=== PATIENT | female | born 1955 | race Caucasian/White ===

== ENCOUNTER 2018-09-20 08:27 | Outpatient (REF) | payer BC, SELFPAY ==
[2018-09-20 13:43] LABS: ALT 22 U/L (12-78); AST 15 U/L (15-37); Albumin 3.9 g/dL (3.4-5.0); Alkaline Phosphatase 96 U/L (46-116); Anion Gap 8.3 mmol/L (3-11); BUN 15 mg/dL (7-18); Bilirubin, Total 0.5 mg/dL (0.2-1.0); CO2 30.7 mmol/L (21.0-32.0); CREATININE 0.73 mg/dL (0.55-1.02); Chloride 103 mmol/L (98-107); Cholesterol 248 mg/dL (50-200); Glucose 93 mg/dL (70-100); HDL Cholesterol 60 mg/dL (40-60); LDL CHOLESTEROL 168 mg/dL (<100); Potassium 4.2 mmol/L (3.5-5.1); Sodium 142 mmol/L (136-145); TSH (W/Ref FT4) 0.31 uIU/mL (0.358-3.74); Total Protein 7.3 g/dL (6.4-8.2); Triglyceride 105 mg/dL (30-150)
[2018-09-20 14:10] LABS: FREE T4 1.47 ng/dL (0.76-1.46)
== END 2018-09-20 08:47 ==
LOC: NCHCN 08:27
PROVIDERS: PCP Family Medicine; Visit Provider Nurse Practitioner
DX: E03.9 Hypothyroidism, unspecified (principal); E78.5 Hyperlipidemia, unspecified
CPT/HCPCS: 80053; 80061; 83721; 84439; 84443

== ENCOUNTER 2018-10-06 00:26 | Outpatient (CLI) | payer BC, SELFPAY ==
--- NOTE | 2018-10-06 11:30 | DI.MAMMO_ITS ---
SYMPTOMS/DIAGNOSIS: SCREENING, Z12.31 MAMMOGRAMS: Mammograms were interpreted according to the usual protocol including computer analysis with CAD system, tomosynthesis and C view imaging. The breast tissue is primarily of fatty radiodensity. There is no dominant mass. There are no suspicious calcifications and there has been no significant interval change when compared with previous images. SUMMARY: No evidence of malignancy, category 1. Yearly screening mammography is recommended. Breast density category A. MQSA ASSESSMENT OF FINDINGS: Negative. Category 1. Patient will receive a letter notifying them of these results. BI-RAD category A. The breasts are almost entirely fatty.
== END 2018-10-06 00:46 ==
PROVIDERS: PCP Family Medicine; Visit Provider Nurse Practitioner Family
DX: Z12.31 Encounter for screening mammogram for malignant neoplasm of breast (principal)
CPT/HCPCS: 77063; 77067

== ENCOUNTER 2019-01-02 00:33 | Outpatient (CLI) | payer BC, SELFPAY ==
--- NOTE | 2019-01-02 09:42 | DI.RAD_ITS ---
SYMPTOM/DIAGNOSIS: LT KNEE JOINT PAIN, M25.562 LEFT KNEE: There are no prior comparison exams. There is severe degenerative changes of the lateral femoral tibial joint, with a bone on bone appearance. There is some widening of the medial femoral tibial joint. There is prominent spurring at the patellofemoral joint. Venous varicosities are seen. IMPRESSION: Severe degenerative changes of the lateral femoral tibial joint.
== END 2019-01-02 00:53 ==
PROVIDERS: PCP Nurse Practitioner; Visit Provider Nurse Practitioner
DX: M25.562 Pain in left knee (principal); M17.12 Unilateral primary osteoarthritis, left knee
CPT/HCPCS: 73562

== ENCOUNTER 2019-01-17 12:43 | Outpatient (CLI) | payer BC, SELFPAY ==
--- NOTE | 2019-01-17 12:57 | HPE_ITS ---
Date of service: 01/17/19 Assessment and Plan (1) Primary osteoarthritis of left knee: Current visit: No Status: Chronic Left total knee replacement Details of the were discussed with patient as well as risks and pertinent anatomy. All questions were answered. History of Present Illness Chief Complaint: Left knee pain Narrative: Renato is a 63-year-old female who comes in today for a preop visit for a left total knee replacement. She states that she has been dealing with this left knee pain for many years, but over the last 6 months or so it has gotten significantly worse. She usually spends her winter down in [place], and this winter she was unable to participate in many of the activities that she likes to do including walking, because of her left knee pain. She previously was able to push through a little bit of the pain while using Tylenol, and was also able to participate fully in what she wanted to do. Over the last 6 months she has been severely limited by her left knee and would like to move forward with a total knee replacement. She has not tried injections in the past, but she has known family members to have gone through this, and injections did not work for them. She is not interested in injection therapy at this time. She has been doing physical therapy in order to work on some conditioning of the knee as she was instructed by her family that this might be a good idea. She is here to discuss the possibility of having a left total knee replacement. X-rays taken of her left knee show that she has severe arthritis especially in the lateral compartment with a severe valgus deformity. She does have some joint space narrowing in all of her compartments, but she has [id number] on the lateral compartment. There is bone spurring throughout the knee. Since she is not interested in injection therapy, Dr. Puri suggests that her disease is bad enough to move forward with a left total knee replacement, and she agrees with this plan and is anxious to proceed. Pertinent Surgical Information Renato has a history of GERD with stomach ulcers, but this has been resolved with pantoprazole. Patient denies history of hypertension, CVA, OK, angina, asthma, COPD, renal or liver disorders, hepatitis, bleeding disorders, diabetes, immune or thyroid disorders. No complications from anesthesia. Review of Systems Constitutional Denies fever(s) ENT Denies dizziness and Denies sore throat Cardiovascular Denies chest pain, Denies palpitations and Denies dyspnea Respiratory Denies cough and Denies dyspnea Gastrointestinal Denies abdominal pain, Denies melena, Denies hematochezia, Denies diarrhea, Denies nausea and Denies vomiting Genitourinary Denies hematuria and Denies dysuria Neurologic Denies dizziness Endocrine Denies palpitations [facility] Medical History Hypothyroidism (Acute 08/28/13) Psoriasis (Acute 08/28/13) Surgical History History of decompression of ulnar nerve (Acute) History of repair of right rotator cuff (Acute) Family History Mother Heart disease Father Dementia Peripheral neuropathy Sister Diabetes Social History Smoking/Tobacco Use Status: Never Drug use: Never Meds Home Medications Medication Instructions Recorded Confirmed Type calcium carbonate-vit D3-min 1 ea PO DAILY tab.chew 08/28/13 01/17/19 History Pantaprazole PO DAILY 09/30/18 01/17/19 History triamcinolone acetonide 0.1 % 1 applic TOPICAL BID #30 gm 09/30/18 01/17/19 Rx topical cream fish oil-dha-epa 1,200 mg-144 1 cap PO DAILY cap 01/11/19 01/17/19 History mg-216 mg capsule levothyroxine 112 mcg tablet 125 mcg PO DAILY tab-cap 01/11/19 01/17/19 History Allergies Allergy/AdvReac Type Severity Reaction Status Date / Time sulfamethoxazole AdvReac Intermediate VOMITING Unverified 01/17/19 11:57 [From Bactrim] trimethoprim [From Bactrim] AdvReac Intermediate VOMITING Unverified 01/17/19 11:57 Exam [facility] Head: normocephalic and atraumatic General nose exam: no nasal discharge Throat: uvula midline and no uvular edema Other: soft palate rises symmetrically, no erythema Eyes Conjunctivae: conjunctivae normal Sclera: sclerae normal Pupils: PERRL Resp Effort & Inspection: normal respiratory effort Auscultation: clear to auscultation bilaterally and no wheezes Cardio Rate: regular rate Rhythm: regular rhythm Heart Sounds: S1 normal, S2 normal and no murmurs GI Palpation: soft, no hepatosplenomegaly and nontender Auscultation: normal bowel sounds
[2019-01-17 13:53] LABS: Abs Immature Grans 0.01 k/cumm (0.0-0.09); Absolute Basophil Count 0.03 k/cumm (0.0-0.2); Absolute Eosinophil Count 0.25 k/cumm (0.0-0.7); Absolute Lymphocyte Count 1.52 k/cumm (1.2-3.4); Absolute Monocyte Count 0.65 k/cumm (0.11-0.7); Absolute Neutrophil Count 3.93 k/cumm (1.2-6.7); Basophils % 0.5; Eosinophils % 3.9; HCT 41.1 % (36.0-46.0); HGB 13.9 g/dL (12.0-15.5); Immature Grans % 0.2; Lymphocytes % 23.8; Mean Corp. HGB Concentration 33.8 g/dL (32.0-36.0); Mean Corpuscular Hemoglobin 29.6 pg (27.0-33.0); Mean Corpuscular Volume 87.4 fL (80-95); Mean Platelet Volume 9.1 fL (8.0-11.0); Monocytes % 10.2; Neutrophils % 61.4; Platelet Count 289 x1000/uL (130-400); RBC Distribution Width 12.9 % (11.7-14.6); White Blood Cell Count 6.39 k/cumm (4.4-10.8)
== END 2019-01-17 13:03 ==
PROVIDERS: PCP Nurse Practitioner; Visit Provider Orthopaedic Surgery
DX: M25.562 Pain in left knee (principal); M17.12 Unilateral primary osteoarthritis, left knee; Z01.812 Encounter for preprocedural laboratory examination; Z01.818 Encounter for other preprocedural examination
CPT/HCPCS: 36415; NC; 85025

== ENCOUNTER 2019-01-23 06:01 | Inpatient (IN) | payer BC, SELFPAY ==
[2019-01-23] VITALS (12 sets, daily range): BP systolic 106–124; BP diastolic 39–71; PULSE 61–80; RESP 12–18; TEMP 36.4–37; O2SAT 92–97
[2019-01-23] MEDS: Lactated Ringers 1,000 ML 80 ML IV ×2 (06:44→13:41)
[2019-01-23] MEDS: Bupivacaine 0.25% Pres-Free 30 ML VIAL (07:18)
[2019-01-23] MEDS: Bupivacaine LIPOSOME/PF 133 MG/10 ML VIAL IJ (07:18)
[2019-01-23] MEDS: ceFAZolin 2 GM/50 ML BAG IVPB (07:39)
[2019-01-23] MEDS: Hydrogen Peroxide 3% 480 ML BTL (09:07)
--- NOTE | 2019-01-23 11:17 | DI.RAD_ITS ---
SYMPTOMS/DIAGNOSIS: CHECK TOTAL KNEE COMPONENTS IN RR LEFT KNEE: Two views. Comparison 01/02/19. The patient is now status post left total knee replacement. The orthopedic hardware appears in good position. The bones are intact. Skin mirella are present. Post surgical changes in the soft tissues are noted. IMPRESSION: Status post left TKR.
[2019-01-23] MEDS: oxyCODONE-CR 10 MG TABCR PO (11:58)
--- NOTE | 2019-01-23 13:18 | NUR.NOTE ---
1145 - Admitted from PACU, S/P left TKA. Transferred to bed in room 225 via hover mattress and 3 assist. Alert and oriented x3. VSS. See initial shift assessment for details.
[2019-01-23] MEDS: Docusate Sodium 100 MG CAP PO ×2 (13:53→20:57)
[2019-01-23] MEDS: Gabapentin 100 MG CAP PO ×2 (13:53→20:57)
--- NOTE | 2019-01-23 14:18 | PT.INIE ---
Date of service: 01/23/19 Time of Service: 13:50 PT Notes Inpatient Physical Therapy Evaluation Date: 01/23/19 Referring Doctor: Dr. Puri PT Orders: PT CONSULT: Mobilize postop left total knee. WBAT to left leg. Get out of bed ambulating in room this afternoon Precautions: Standard, fall, WBAT LLE Patient Profile/Admitting Diagnosis: Patient admitted postop day 0 after left TKA. 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 She lives in [place] with her . 2 steps to enter home without rail. Once in the home, she is able to remain on the first floor. Equipment Owned/DME: FW W Subjective: Patient reports that she is feeling well since her surgery earlier this morning. She is nervous about getting up for the first time, but feels that she is ready to do so. States that she thinks it will feel good to get her leg moving. She points out that she had been participating in outpatient PT up until a couple of weeks prior to surgery, and is hopeful that the strengthening will be helpful for her as she recovers from surgery. Objective: General Observation: Resting in bed with left lower extremity elevated on pillows, and supported with Lowe wrap and knee immobilizer. Evangelista catheter in place. Mental Status: A&Ox3 Pain: well managed ROM: Right Upper Extremity: WFL Left Upper Extremity: WFL Right Lower Extremity: WFL Left Lower Extremity: Not assessed due to Lowe wrap Strength: Right Upper Extremity: WFL Left Upper Extremity: WFL Right Lower Extremity: WFL Left Lower Extremity: Patient requires 25% assist for straight leg raise initially, although is able to perform a single independent SLR with cues. She is able to pump her ankle and wiggle her toes. Sensation: Intact distally Bed Mobility/Transfers: Supine?sit: CG with HOB at 30 degrees Sit?stand: CG Stand?sit: CG, max cues Bed?chair: FW W, CG, max cues Gait: Patient ambulance 5 feet with use of FW W and CG x1. She requires max cues for FW W management and technique. Balance: Static Sitting: Good Dynamic Sitting: Fair Static Standing: Fair Dynamic Standing: Fair Special Tests: Mobility Limitations [facility] Basic Mobility Inpatient Short Form: Raw Score: 17 CMS Score: 51% Informed Consent/Education: Patient instructed in purpose of PT consult and plan of care. She was instructed in an early therapeutic exercise program, consisting of quad setting activities and antiembolic exercises, as noted on flowsheet. Assessment: Patient is a 63 year old female referred to physical therapy services with the diagnosis of left knee OA, status post left TKA, postop day 0. Patient presents with clinical signs and symptoms consistent with postoperative status, as demonstrated by the following impairment level findings: 1. Decreased left lower extremity strength 2. Decreased left lower extremity range of motion 3. Gait impairments 4. Decreased balance 5. Postoperative edema Impairments are contributing to the following functional limitations: 1. Decreased independence with household distance ambulation 2. Decreased independence of bed mobility 3. Decreased independence with ADLs 4. Unable to manage stairs Patient is assessed as a Low 00073 complexity based on the following: History: 63-year-old female on postop day 0 after left total knee replacement. Patient does not have any significant complicating factors Examination: Functional limitations as noted above Presentation: Stable Decision Making: Low complexity Goals: Goals X1 week 1. Supine-Sit : supervision 2. Sit-Supine : supervision 3. Sit-Stand : supervision 4. Stand-Sit : supervision 5. Bed-Chair : supervision with FW W 6. Chair-Bed : supervision with FW W 7. Gait: Supervision with FW W x100 feet 8. Stairs: Patient able to a send and descend therapeutic stairs x2 Plan of Care/Treatment Plan: 1-2x/day, 7 days/week x 1 week. Plan of care has been reviewed with the RELIABILITY TECHNOLOGIST providing the service under Physical Therapy direction. Initiate Physical Therapy intervention for strengthening, bed mobility, transfers, gait, stairs, balance training, use of assistive device. DISCHARGE RECOMMENDATIONS: Home with home health versus outpatient PT. No anticipated equipment needs, as patient already owns an FW W TREATMENT CODE/TIME: 150?215 ([id number]) Deepa Ley, PT, DPT [facility]
[2019-01-23] MEDS: POTASSIUM CHLORIDE/0.9% NACL 1,000 ML 125 MEQ IV (16:08)
[2019-01-23] MEDS: Ketorolac 30 MG/ML VIAL IVP ×2 (17:35→23:31)
[2019-01-23] MEDS: HYDROcodone 5/Acetaminophen 325 TAB PO (20:58)
[2019-01-24] VITALS (7 sets, daily range): BP systolic 99–127; BP diastolic 61–71; PULSE 64–74; RESP 18–19; TEMP 36.4–37.7; O2SAT 93–99
[2019-01-24] MEDS: Ketorolac 30 MG/ML VIAL IVP ×4 (06:07→23:43)
[2019-01-24] MEDS: Levothyroxine 125 MCG TAB PO (06:07)
[2019-01-24 07:44] LABS: HCT 35.1 % (36.0-46.0); HGB 11.4 g/dL (12.0-15.5); Mean Corp. HGB Concentration 32.5 g/dL (32.0-36.0); Mean Corpuscular Hemoglobin 28.9 pg (27.0-33.0); Mean Corpuscular Volume 88.9 fL (80-95); Mean Platelet Volume 9.6 fL (8.0-11.0); Platelet Count 193 x1000/uL (130-400); RBC 3.95 m/cumm (4.00-5.20); RBC Distribution Width 12.9 % (11.7-14.6); White Blood Cell Count 5.87 k/cumm (4.4-10.8)
[2019-01-24] MEDS: HYDROcodone 5/Acetaminophen 325 TAB PO ×3 (07:48→20:24)
[2019-01-24] MEDS: Gabapentin 100 MG CAP PO ×3 (07:48→20:25)
[2019-01-24] MEDS: Acetaminophen 325 MG TAB 650 MG PO (07:48)
[2019-01-24] MEDS: Pantoprazole 40 MG TABCR PO (07:48)
[2019-01-24] MEDS: Enoxaparin 30 MG/0.3 ML SYR SC (09:16)
[2019-01-24] MEDS: Multivitamin w/Minerals TAB 1 TAB PO (09:16)
[2019-01-24] MEDS: Docusate Sodium 100 MG CAP PO ×3 (09:16→20:25)
--- NOTE | 2019-01-24 09:20 | ROE_ITS ---
DATE OF PROCEDURE: January 23, 2019 PREOPERATIVE DIAGNOSIS: Osteoarthritis left knee with valgus deformity. POSTOPERATIVE DIAGNOSIS: Same. PROCEDURE: Left total knee arthroplasty. COMPONENTS USED: 1. Size 2.5 posterior cruciate-sacrificing femoral component. 2. Size 2.5 tibial component. 3. Size 2.5, 10 mm thick polyethylene insert, posterior cruciate-substituting. 4. 32 mm tri-pronged patella. All components were cemented. ANESTHESIA: General with a femoral nerve block, Bonnie Gates CRNA SURGEON: Graham Puri M.D. FIRE PREVENTION INSPECTOR: Chloe Sheriff INDICATIONS: This is a 63-year-old white female with disabling pain and limitation of activities of daily living due to osteoarthritis of her left knee. This has been slowly deteriorating over the la st few years. She has reached the point where she could no longer tolerate the pain on a daily basis and she is requesting total knee replacement for relief of pain. The risks and complications of the procedure were explained to the patient in detail preoperatively. PROCEDURE: The patient was taken to the Operating Room on 01/23/19. She was given a femoral nerve bl ock and then placed supine on the operating table. A general anesthetic was administered. Once good anesthesia was obtained, a proximal tourniquet was applied to the left thigh. The left lower extrem ity was prepped from toes to tourniquet and draped free in the usual sterile fashion. Under proximal tourniquet control an anterior midline incision was made, beginning at the tibial tube rcle and extending about four inches proximal to the patella. The incision was carried through the s kin and subcu to the fascia. A medial parapatellar capsular incision was then made and was carried p roximally and longitudinally in the mid-portion of the quadriceps tendon. Because of her valgus defo rmity, a limited medial release was performed, and that was done subperiosteally. A more extensive l ateral release was performed, including the lateral capsule and the iliotibial band. The lateral cap jimmie was released at the joint line. Medial and lateral meniscectomies were performed. Anterior and posterior cruciate ligaments were sacrificed. The distal femur was then resected using intramedulla ry alignment guides and jigs. She was found to require a size 2.5 femoral component. The proximal t ibia was then resected using extramedullary alignment guides and jigs. The patient was again found t o require a size 2.5 tibial component. Trial reduction was then performed and it was found that she had maximal stability from 0 to 90 degrees of flexion while allowing the knee to come to full extensi on with a 10 mm insert. The trial components were then removed and then the keel for the tibial comp onent was reamed and punched out in proper rotation alignment. Finally the patella was resected usin g the patellar resection guide. The patella thickness was 22 mm prior to resection. I left 15 to 16 mm of thickness of patellar bone following resection. Using the drill guide for the tri-pronged pat reji, holes were drilled for a size 32 tri-pronged patella. The proximal tibia was prepared for cementing with pulse irrigation lavage of saline solution and dry ing with peroxide-soaked strip sponges. One batch of gentamicin-impregnated methylmethacrylate was v acuum-mixed and was hand packed onto the undersurface of the tibial component and onto the prepared t ibial plateau. The tibial component was inserted and packed into place with impactor and mallet and further pressurized using the trial components and extending the knee. Excess cement was trimmed fro m the margins of the tibial component with the plastic cement removal tool while the cement was still soft. When the first batch of methylmethacrylate had cured, the trial components were removed. The distal femur and patella were prepared for cementing with pulse irrigation lavage of saline solution and drying with peroxide-soaked strip sponges. Another batch of gentamicin-impregnated methylmethac rylate was vacuum-mixed and was hand packed onto the prepared femur and patella. The holes for the i ntramedullary alignment guides on the femur were plugged with bone doing the distal femoral resection . The femoral component was then packed into place with the impactor and mallet and further pressuri zed using the trial tibial insert and extending the knee. The patellar component was inserted and wa s pressurized using the patellar clamp. Excess cement was trimmed from the margins of the femoral co mponent and the patellar component while the cement was still soft using the plastic cement removal t ool. When the second batch of methylmethacrylate was cured, the trial insert was removed. The poste rior recesses were checked and any residual bone or cement debris was removed at this time. The knee was irrigated with pulse irrigation lavage a final time. The actual insert, 10 mm, posterior crucia te-substituting was placed into the tibial tray and then reduced onto the femoral condyles. Patellar tracking was checked using the [id number]-thumb. The patella tracked anatomically. The posterior c apsule was infiltrated with 0.5% Marcaine with an epinephrine solution and then the wound margins, st arting at the joint capsule and extending to the subcu, were infiltrated with 0.5% Marcaine with an e pinephrine solution. The medial parapatellar capsular incision and the incision in the quad tendon w ere repaired with interrupted [id number] sutures of #1 Vicryl suture material. The subcu was ap proximated with interrupted #2-0 Vicryl sutures and the skin edges were approximated with skin staple s. Sterile dressings were applied, followed by a long-leg Lowe compressive dressing. The tournique t was released at this point. A knee immobilizer splint was placed over the Lowe dressing to mainta in the knee in extension. The patient tolerated the procedure well. Her anesthesia was reversed without complication. Blood l oss was minimal due to tourniquet use. The patient was discharged to the recovery room in good condi tion.
[2019-01-24] MEDS: POTASSIUM CHLORIDE/0.9% NACL 1,000 ML 60 MEQ IV (10:25)
[2019-01-24] MEDS: oxyCODONE-CR 10 MG TABCR PO ×2 (11:23→23:44)
--- NOTE | 2019-01-24 13:24 | W.PM.PROGNOT ---
Date of Service Date of service: 01/24/19 Time of Service: 13:24 Assessment and Plan (1) Status post total left knee replacement: Current visit: Yes Status: Acute Assessment: Stable postop day #1 left total knee replacement. She is moving so well so quickly that I think we can accelerate her postop mobilization. Plan: We will have PT remove her Lowe dressing, put on long-leg Dmitri stocking on the left, and start active motion of her left knee this afternoon. Will DC home when fully independent and taking only p.o. pain meds. Subjective Interval history since last seen: Renato is feeling well. Her pain is well controlled with her present regimen of multimodal pain relief. She is afebrile. Today she walk from her room to the ICU and back. Her Evangelista is out but she has not voided yet. Exam Narrative Exam Narrative: She is sitting comfortably in a chair. She has good sensation and circulation to the toes of her left foot. She has good active motion of the toes and ankle. She is afebrile and her vital signs are stable. Hemoglobin this morning was 11.4 g. She is eating and drinking well. Objective Objective Clinical Data: Abnormal lab results 01/24/19 Range/Units 06:40 RBC 3.95 L (4.00-5.20) m/cumm Hgb 11.4 L (12.0-15.5) g/dL Hct 35.1 L (36.0-46.0) % Vital Signs Temperature 36.7 C 01/24/19 11:19 Temperature Source Tympanic 01/24/19 11:19 Pulse 64 01/24/19 11:19 Pulse Rhythm Regular 01/24/19 09:26 Respiratory Rate 18 01/24/19 11:19 Respiratory Effort 01/24/19 09:26 Respiratory Depth Normal 01/24/19 09:26 Respiratory Pattern Normal 01/24/19 09:26 Blood Pressure 102/61 01/24/19 11:19 Pulse Oximetry 94 L 01/24/19 11:19 Respiratory End-tidal CO2 38 01/23/19 11:45 Oxygen Delivery Method Room Air 01/24/19 11:19 Oxygen Flow Rate 0 01/24/19 11:19 Pain Level 4 01/24/19 11:24 Comment 01/24/19 03:15 Intake & Output 0701/24/19 01/24/19 23:59 11:59 23:59 Intake Total 1273 / 2358 1573 / 1573 Output Total 1050 / 1100 1000 / 1000 Balance 223 / 1258 573 / 573 Intake: IV 783 / 1793 913 / 913 Oral 490 / 565 660 / 660 Output: Urine 1050 / 1100 1000 / 1000 Other: Urine Color Pale Light Hanny Urine Appearance Clear Clear Comment emptied by RN Laboratory Results WBC 5.87 k/cumm (4.4-10.8) 01/24/19 06:40 RBC 3.95 m/cumm (4.00-5.20) L 01/24/19 06:40 Hgb 11.4 g/dL (12.0-15.5) L 01/24/19 06:40 Hct 35.1 % (36.0-46.0) L 01/24/19 06:40 MCV 88.9 fL (80-95) 01/24/19 06:40 MCH 28.9 pg (27.0-33.0) 01/24/19 06:40 MCHC 32.5 g/dL (32.0-36.0) 01/24/19 06:40 RDW 12.9 % (11.7-14.6) 01/24/19 06:40 Plt Count 193 x1000/uL (130-400) 01/24/19 06:40 MPV 9.6 fL (8.0-11.0) 01/24/19 06:40
--- NOTE | 2019-01-24 16:13 | CHAPLAIN ---
Renato was sitting up in a chair when I visited. She said she expects to feel much better after getting through recovery. She has has several family members and friends visit and is feeling well supported. She looks forward to having much less pain in her knee.
--- NOTE | 2019-01-24 16:17 | INITIAL_ITS ---
Care Management Initial Assess REASON FOR HOSPITALIZATION:: Post Op Left Total Knee PAST MEDICAL HISTORY/PAST SURGICAL HISTORY:: GERD, Hypothyroidism, Osteoarthritis, Psoriasis, decompression of ulnar nerve, repair of right rotator cuff PREVIOUS FUNCTIONAL STATUS/SOCIAL/FAMILY SUPPORTS:: Renato resides with her , [place] in [place], [place]. She is independent at baseline and independent with ADLs in the community. 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 CURRENT FUNCTIONAL STATUS:: Renato was lying in bed, speaking with PT. Renato reported having needed DME at home. ADVANCE DIRECTIVES:: None on file at [facility]. Has patient been provided with information about the portal?: No Did the patient sign up for the portal?: No CODE STATUS:: Full Code INSURANCE COVERAGE / FINANCIAL ISSUES:: [place] of [place] CURRENT HOME/COMMUNITY SERVICES/EQUIPMENT:: [facility] PRIMARY CARE PHYSICIAN:: Yoselyn Landrum POTENTIAL DISCHARGE NEEDS:: PT evaluation PATIENT/FAMILY EDUCATION NEEDS:: Review of discharge instructions, discuss Ask Me Three. ANTICIPATED BARRIERS TO DISCHARGE:: None identified. TRANSPORTATION:: Via private vehicle with her . PLAN:: Renato will return home when ready per MD. No additional supports anticipated at this time. She will follow up with Dr. Puri, her PCP and plan of care as prescribed. She will transport via private vehicle with her .
--- NOTE | 2019-01-24 16:56 | PT.INTREAT ---
Date of service: 01/24/19 Time of Service: 16:56 PT Notes Inpatient Physical Therapy Treatment [facility] Date: 01/24/2019 PRECAUTIONS: Fall, WBAT L SUBJECTIVE: Renato reports that she is having increased pain today versus yesterday. She is agreeable to participating in PT OBJECTIVE: PAIN: Patient complained of left knee pain with ther ex BED MOBILITY/TRANSFERS Supine?sit: I Sit-supine: I with HOB flat Sit-stand: SBA in a.m.; S in p.m. Stand-sit: SBA in a.m.; S in p.m. GAIT Assistive Device: FWW Weight bearing: WBAT L Assist: SBA Distance: 40' x2 in a.m.; 150' in p.m. Deviation: Cueing to breathe and step through instruction in a.m. Static standing at sink x3 minutes with unilateral UE support and SBA THEREX: Patient completed a lower extremity strengthening and stabilization program, in a supine position, as per flow sheet. Patient requires assist with SLR exercise with and without Lowe wrap in place. Left knee AROM is -10-92 degrees. Patient ends with cryocuff to left knee. REMOVAL OF LOWE: Incision site with 28 mirella found to be clean, dry, and intact. No redness or blistering noted. Replaced with Xeroform gauze, 4?4 gauze, tape, and thigh?high RAVINDER stocking. TOILETING: Patient toileted with supervision for transfers ASSESSMENT: Patient tolerated session with minimal complaint of left knee discomfort. Patient was able to tolerate a progression in gait distance with FWW support and SBA, utilizing step through gait pattern following instruction. Patient would benefit from continued gait training as well as strengthening for improved mobility. PLAN: Continue with PT's POC TREATMENT CODE/TIME: Session 1: 30 minutes; [id number], [id number] Session 2: 55 minutes; 73017 x3, [id number]
[2019-01-25 04:45] VITALS: BP 110/68; PULSE 75; RESP 14; TEMP 37.1; O2SAT 98
[2019-01-25] MEDS: Levothyroxine 125 MCG TAB PO (05:14)
[2019-01-25] MEDS: Ketorolac 30 MG/ML VIAL IVP ×2 (05:14→11:31)
[2019-01-25 07:25] VITALS: BP 100/64; BP 93/57; PULSE 61; RESP 18; TEMP 36.9; O2SAT 93
[2019-01-25] MEDS: Docusate Sodium 100 MG CAP PO (07:43)
[2019-01-25] MEDS: Pantoprazole 40 MG TABCR PO (07:43)
[2019-01-25] MEDS: Gabapentin 100 MG CAP PO (07:43)
[2019-01-25 07:44] LABS: HCT 31.4 % (36.0-46.0); HGB 10.3 g/dL (12.0-15.5); Mean Corp. HGB Concentration 32.8 g/dL (32.0-36.0); Mean Corpuscular Hemoglobin 29.1 pg (27.0-33.0); Mean Corpuscular Volume 88.7 fL (80-95); Mean Platelet Volume 9.6 fL (8.0-11.0); Platelet Count 185 x1000/uL (130-400); RBC 3.54 m/cumm (4.00-5.20); RBC Distribution Width 12.8 % (11.7-14.6); White Blood Cell Count 9.41 k/cumm (4.4-10.8)
[2019-01-25] MEDS: Triamcinolone 0.1% CR 15 GM TUBE TP (07:44)
[2019-01-25] MEDS: Multivitamin w/Minerals TAB 1 TAB PO (07:45)
[2019-01-25] MEDS: HYDROcodone 5/Acetaminophen 325 TAB PO (08:00)
--- NOTE | 2019-01-25 09:25 | PT.INTREAT ---
Date of service: 01/25/19 Time of Service: 09:25 PT Notes Inpatient Physical Therapy Treatment Note [facility] Date: 01/25/2019 PRECAUTIONS: Fall, WBAT L SUBJECTIVE: Renato states that she is feeling pretty good today. She reports that she has been ambulating and transferring within her room, independently, and feels safe. OBJECTIVE: PAIN: No c/o pain BED MOBILITY/TRANSFERS Supine?sit: I Sit-stand: I Stand-sit: I GAIT Assistive Device: FWW Weight bearing: WBAT L Assist: S Distance: 175' Static standing at sink x2 minutes with unilateral UE support, independently THEREX: Patient completed a lower extremity strengthening and stabilization program, in a supine position, as per flow sheet. Patient requires assist with SLR exercise. Patient ends with cryocuff to left knee. TOILETING: Patient toileted independently ASSESSMENT: Patient tolerated session without complaint of left knee discomfort. Patient was able to tolerate a progression in gait distance with FWW support and supervision, utilizing step through gait pattern. Patient is now independent within room with ambulation and transfers. PLAN: As per primary PT TREATMENT CODE/TIME: 30 minutes; 04009, [id number]
[2019-01-25] MEDS: Enoxaparin 30 MG/0.3 ML SYR SC (10:15)
[2019-01-25 11:16] VITALS: BP 106/68; PULSE 68; RESP 18; TEMP 36.3; O2SAT 100
[2019-01-25] MEDS: oxyCODONE-CR 10 MG TABCR PO (11:29)
[2019-01-25] MEDS: Normal Saline Flush 10 ML SYR IV (11:30)
--- NOTE | 2019-01-25 12:17 | W.PM.DS.N ---
Date of service: 01/25/19 Time of Service: 12:18 DS: Diagnosis Discharge Diagnosis (1) Status post total left knee replacement: Status: Acute Discharge Plan Disposition Patient Disposition: HOME Condition: Good Discharge Details Reason For Visit: POST OP LEFT TOTAL KNEE Admit Date/Time: 01/23/19 06:01 Admit Provider: Graham Puri Attending Provider: Graham Puri Primary Care Provider: Yoselyn aLndrum Hospital Course Hospital Course: The patient was taken to the OR on the day of admission,01/23/19, where she underwent a L total knee arthroplasty. Post-op she was mobilized per protocol. She achieved a ROM of 10-92 degrees within 48 hours. she remained afebrile throughout her stay. At 48 hours, her incision was clean and dry. She wanted to go home. She had achieved all acute care goals and I thought she could be safely discharged home. Home Meds and New Rx's Prescriptions: New ibuprofen 800 mg tablet 800 mg PO TID Qty: 30 RF: 1 hydrocodone-acetaminophen 5-325 mg tablet 1 tab PO Q4H PRN (Reason: pain) Qty: 20 RF: 0 Continued triamcinolone acetonide 0.1 % cream 1 applic Topical BID Qty: 30 RF: 1 fish oil-dha-epa 1,200-144-216 mg capsule 1 cap PO DAILY RF: 0 calcium carbonate-vit D3-min 1 EACH tablet,chewable 1 ea PO HS RF: 0 levothyroxine 125 mcg Capsule 125 mcg PO DAILY RF: 0 pantoprazole 20 mg Tablet,Delayed Release (Dr/Ec) 20 mg PO DAILY RF: 0 acetaminophen 650 mg Tablet Extended Release 650 mg PO RF: 0 Discharge Instructions Additional Instructions: Elevate L leg when sitting. Use walker or crutches as long as you limp. Tomorrow, may remove dressings, shower, and get mirella wet. After showering, pat mirella dry and cover them with light gauze dressing. Use cryocuff on L knee 4times/day for 1 hour each time. When you can lift your straight L leg off the bed, you can stop using the knee immobilizer splint. Outpatient physical therapy at [facility] on Wednesday. Follpow up with in 2 weeks. Take ibuprofen as prescribed for 10 days. Take hydrocodone for breakthru pain, if needed. Take one baby aspirin (81 mg) twice/day for 30 days to prevent blood clots in legs. Wear long elastic stocking on L during daytime only for next 2 weeks. Walk every day as much as your discomfort allows. Referrals: Graham uPri MD [ [facility] STAFF PHYSICIAN] - (f/u in 2 weeks.) Activity:: Activity as Tolerated Equipment/Supplies:: Walker Diet:: As Tolerated Discharge Orders Discharge Orders: Discharge Order (Routine); Ordered 01/25/19 Ordered By: Grhaam Puri DS: Data Vitals/I&O Vitals and I&O: Vital Signs Temperature 36.3 C L 01/25/19 11:16 Temperature Source Tympanic 01/25/19 11:16 Pulse 68 01/25/19 11:16 Pulse Rhythm Regular 01/25/19 07:35 Respiratory Rate 18 01/25/19 11:16 Respiratory Effort 01/25/19 07:35 Respiratory Depth Normal 01/25/19 07:35 Respiratory Pattern Normal 01/25/19 07:35 Blood Pressure 106/68 01/25/19 11:16 Pulse Oximetry 100 01/25/19 11:16 Respiratory End-tidal CO2 38 01/23/19 11:45 Oxygen Delivery Method Room Air 01/25/19 11:16 Oxygen Flow Rate 0 01/25/19 11:16 Pain Level 0 01/25/19 11:31 Comment 01/25/19 07:25 Intake & Output 01/24/19 01/25/19 01/25/19 23:59 11:59 23:59 Intake Total 1041 / 2614 540 / 540 Output Total 200 / 1200 Balance 841 / 1414 540 / 540 Intake: IV 201 / 1114 Oral 840 / 1500 540 / 540 Output: Urine 200 / 1200 Other: Urine Color Yellow Yellow Urine Appearance Clear Clear Urine Odor None Comment pt stated that she voided 4 times since alejandra was D/C Stool Size Small Stool Characteristics Hard Brown Voiding Methods Toilet Toilet Labs on day of discharge: Labs from last 24 hours 01/25/19 06:06 WBC 9.41 D RBC 3.54 L Hgb 10.3 L Hct 31.4 L MCV 88.7 MCH 29.1 MCHC 32.8 RDW 12.8 Plt Count 185 MPV 9.6 PFSH Social History Smoking/Tobacco Use Status: Never Drug use: Never
--- NOTE | 2019-01-25 17:27 | PDOC.CMDIS ---
LACE Index Scoring Tool - Questions: Length of Stay (in days): 2 Acuity (Admit via E.D.?): No E.D. Visits: 0 - Answers: Total Score: 2 Risk of Readmission: Low Risk Care Management Discharge Reason for Hospitalization: Post Op Left Total Knee Discharge Plan: Renato will return home when ready per MD with no additional supports anticipated at this time. She will follow up with Dr. Puri, her PCP and plan of care as prescribed. She will transport via private vehicle with her . Patient/Family Education Needs: Review of discharge instructions, discuss Ask Me Three.
--- NOTE | 2019-01-26 09:40 | PT.INDS ---
Date of service: 01/26/19 Time of Service: 09:40 PT Notes Inpatient Physical Therapy Discharge Summary Dates: 01/26/2019 Dates of Service: 01/23/2019 through 01/25/2019 This is a clinical summary of care provided on the duration of dates listed above. No charge was made in the completion of this documentation. Referring Doctor: Dr. Puri PT Orders: PT CONSULT: Mobilize postop left total knee. WBAT to left leg. Get out of bed ambulating in room this afternoon Precautions: Standard, fall, WBAT LLE Patient Profile/Admitting Diagnosis: Patient admitted postop day 0 after left TKA. 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 She lives in [place] with her . 2 steps to enter home without rail. Once in the home, she is able to remain on the first floor. Equipment Owned/DME: FW W Subjective: Patient reports that she is feeling well since her surgery earlier this morning. She is nervous about getting up for the first time, but feels that she is ready to do so. States that she thinks it will feel good to get her leg moving. She points out that she had been participating in outpatient PT up until a couple of weeks prior to surgery, and is hopeful that the strengthening will be helpful for her as she recovers from surgery. Objective: General Observation: NT Mental Status: NT Pain: NT ROM: Right Upper Extremity: WFL Left Upper Extremity: WFL Right Lower Extremity: WFL Left Lower Extremity: Not assessed due to Lowe wrap Strength: Right Upper Extremity: WFL Left Upper Extremity: WFL Right Lower Extremity: WFL Left Lower Extremity: Patient requires 25% assist for straight leg raise initially, although is able to perform a single independent SLR with cues. She is able to pump her ankle and wiggle her toes. Sensation: Intact distally Bed Mobility/Transfers: Supine?sit: I Sit?stand: I Stand?sit: I Bed?chair: I Gait: Patient ambulance 175 feet with use of FWW WBAT on L with S. Balance: Static Sitting: Good Dynamic Sitting: Fair Static Standing: Fair Dynamic Standing: Fair Assessment: Patient is a 63 year old female referred to physical therapy services with the diagnosis of left knee OA, status post left TKA, postop day 0. Patient presents with clinical signs and symptoms consistent with postoperative status, as demonstrated by the following impairment level findings: 1. Decreased left lower extremity strength 2. Decreased left lower extremity range of motion 3. Gait impairments 4. Decreased balance 5. Postoperative edema Impairments are contributing to the following functional limitations: 1. Decreased independence with household distance ambulation 2. Decreased independence of bed mobility 3. Decreased independence with ADLs 4. Unable to manage stairs Goals: Goals X1 week 1. Supine-Sit : supervision MET 2. Sit-Supine : supervision MET 3. Sit-Stand : supervision MET 4. Stand-Sit : supervision MET 5. Bed-Chair : supervision with FWW MET 6. Chair-Bed : supervision with FWW MET 7. Gait: Supervision with FW W x100 feet NOT MET 8. Stairs: Patient able to a send and descend therapeutic stairs x 2 MET DISCHARGE RECOMMENDATIONS: Patient will benefit from home health PT services in order to progress mobility level using least restrictive assistive ambulatory device/using no device, assess home safety, identify additional equipment needs, and establish a functional maintenance program that will increase ability of patient to remain at home. TREATMENT CODE/TIME: SC Thank you very much for this referral. Donna Loera PT, DPT, CLT [facility]
== END 2019-01-25 13:48 | disposition home or self-care (01) | DRG 470 ==
LOC: PDS 10:39 → MS 11:31 → PDS 13:41 → MS 13:42
PROVIDERS: Admitting Provider Orthopaedic Surgery; PCP Nurse Practitioner; Visit Provider Orthopaedic Surgery
PROC: 0SRD0J9 Replacement of Left Knee Joint with Synthetic Substitute, Cemented, Open Approach (ICD-10-PCS; CPT 27447; principal; 2019-01-23 07:30)
DX: M17.12 Unilateral primary osteoarthritis, left knee (principal); M21.062 Valgus deformity, not elsewhere classified, left knee; M25.562 Pain in left knee; Z96.652 Presence of left artificial knee joint; G89.18 Other acute postprocedural pain; K21.9 Gastro-esophageal reflux disease without esophagitis; E03.9 Hypothyroidism, unspecified
CPT/HCPCS: 27447; 36415; 85027; 97110; 97530; NC; 73560; J0690; J1650; J1885; J2250; J2405; J3010; L1830

== ENCOUNTER 2019-04-04 09:38 | Outpatient (REF) | payer BC, SELFPAY ==
[2019-04-04 14:17] LABS: TSH (W/Ref FT4) 1.05 uIU/mL (0.36-3.74)
== END 2019-04-04 09:58 ==
LOC: NCHCN 09:38
PROVIDERS: PCP Nurse Practitioner; Visit Provider Nurse Practitioner
DX: E03.9 Hypothyroidism, unspecified (principal)
CPT/HCPCS: 84443

== ENCOUNTER 2019-10-02 10:43 | Outpatient (REF) | payer BC, SELFPAY ==
[2019-10-02 11:06] LABS: ALT 32 U/L (14-59); AST 21 U/L (15-37); Albumin 3.8 g/dL (3.4-5.0); Alkaline Phosphatase 103 U/L (46-116); Anion Gap 7.8 mmol/L (3-11); BUN 17 mg/dL (7-18); Bilirubin, Total 0.5 mg/dL (0.2-1.0); CO2 29.2 mmol/L (21.0-32.0); CREATININE 0.81 mg/dL (0.55-1.02); Calcium 9.4 mg/dL (8.5-10.1); Calculated LDL 166 mg/dL (<100); Chloride 104 mmol/L (98-107); Cholesterol 241 mg/dL (<200); Glucose 90 mg/dL (74-106); HDL Cholesterol 58 mg/dL (40-60); Sodium 141 mmol/L (136-145); Total Protein 7.1 g/dL (6.4-8.2); Triglyceride 86 mg/dL (<150)
== END 2019-10-02 11:03 ==
LOC: NCHCN 10:43
PROVIDERS: PCP Nurse Practitioner; Visit Provider Nurse Practitioner
DX: E78.5 Hyperlipidemia, unspecified (principal); Z00.00 Encounter for general adult medical examination without abnormal findings
CPT/HCPCS: 80053; 80061

== ENCOUNTER 2020-01-16 11:01 | Outpatient (CLI) | payer BC, SELFPAY ==
--- NOTE | 2020-01-16 09:00 | DI.RAD_ITS ---
EXAM: XR KNEE LT 3V AP,LAT,EMILIO CLINICAL HISTORY: f/u... TECHNIQUE: COMPARISON: CR XR knee LT 2V AP,lat from 01/23/2019 CR XR KNEE RT 2V AP,LAT from 01/16/2020 FINDINGS: Three views of each knee were obtained. On the left there is a total knee joint replacement in position. The components appear well seated. No other significant bony abnormality seen. There is moderate narrowing of the medial tibiofemoral cartilaginous joint space of the right knee an d there appears to be narrowing of the patellofemoral cartilaginous joint space laterally as well. T here is moderate marginal osteophyte formation involving all 3 joints of the right knee. No other si gnificant bony abnormality seen. IMPRESSION: Left TKR in place. Severe DJD right knee.
== END 2020-01-16 11:21 ==
PROVIDERS: PCP Nurse Practitioner; Referring Provider Nurse Practitioner; Visit Provider Orthopaedic Surgery
DX: M17.11 Unilateral primary osteoarthritis, right knee (principal); Z96.652 Presence of left artificial knee joint
CPT/HCPCS: 73562; 73560

== ENCOUNTER 2020-01-23 11:31 | Outpatient (REF) | payer BC, SELFPAY ==
--- NOTE | 2020-01-23 11:15 | PAPFT_PTH ---
PATIENT: Renato Lowe LOC: [facility] U#:[id number] AGE/SX: 64/F ROOM: RE01/23/[address]: CEDRICK Koch : 1955 BED: DIS: 01/23/2020 SPEC #: [id number] RECD: 01/23/20 16:57 STATUS: JENNIFER DELATORRE #: [id number] LOUISE: 01/23/20 11:[address]: Mery Denton DEPT: [facility] Cytology RECD BY: Vel Marc Tissues: 1 - CX/ENDOCX FOR PAP SMEARS Procedures: PAP THIN PREP/UVM Screening HPV DNA PROBE Comments: [id number]
== END 2020-01-23 11:51 ==
LOC: LBN 11:31
PROVIDERS: PCP Nurse Practitioner; Visit Provider Nurse Practitioner Family
DX: Z11.51 Encounter for screening for human papillomavirus (HPV) (principal)
CPT/HCPCS: 88142; 87624

== ENCOUNTER 2020-01-29 01:24 | Outpatient (CLI) | payer BC, SELFPAY ==
--- NOTE | 2020-01-29 07:30 | DI.MAMMO_ITS ---
EXAM: MAMMO SCREENING CLINICAL HISTORY: screening,Z12.39 TECHNIQUE: Mammograms were interpreted according to the usual protocol including computer analysis w [employer] CAD system, tomosynthesis and C-view imaging. COMPARISON: 2010 through 2018 FINDINGS: The breasts are composed of mainly fatty density , Breast Density category A. No suspicious masses or suspicious microcalcifications are seen. No skin thickening or abnormal axillary lymph nodes are seen. There has been no significant change from prior exams. IMPRESSION: BI-RADS Category 1, negative. Yearly screening mammography is recommended. Breast Density Category A, fatty density.
== END 2020-01-29 01:44 ==
PROVIDERS: PCP Nurse Practitioner; Visit Provider Nurse Practitioner Family
DX: Z12.31 Encounter for screening mammogram for malignant neoplasm of breast (principal); R92.2 Inconclusive mammogram
CPT/HCPCS: 77063; 77067

== ENCOUNTER 2020-02-01 12:21 | Outpatient (CLI) | payer BC, SELFPAY ==
[2020-02-01 14:18] LABS: Abs Immature Grans 0.01 10^3/uL (0.0-0.06); Absolute Basophil Count 0.05 10^3/uL (0.0-0.2); Absolute Eosinophil Count 0.21 10^3/uL (0.0-0.7); Absolute Lymphocyte Count 1.88 10^3/uL (1.2-3.4); Absolute Monocyte Count 0.67 10^3/uL (0.1-0.8); Basophils % 0.7; Eosinophils % 2.9; HCT 39.6 % (36.0-46.0); HGB 13.3 g/dL (11.2-15.7); Immature Grans % 0.1; Lymphocytes % 26.4; MCH 29.4 pg (27.0-33.0); MCHC 33.6 % (32.0-36.0); MCV 87.4 fL (80-95); Monocytes % 9.4; Neutrophils % 60.5; Platelet Count 266 10^3/uL (130-400); RBC 4.53 10^6/uL (3.93-5.22); RDW 12.7 % (11.7-14.6); RDW-SD 40.4 fL; WBC 7.12 10^3/uL (4.4-10.8)
== END 2020-02-01 12:41 ==
PROVIDERS: PCP Nurse Practitioner; Visit Provider Orthopaedic Surgery
DX: M17.11 Unilateral primary osteoarthritis, right knee (principal)
CPT/HCPCS: 36415; 85025

== ENCOUNTER 2020-02-02 07:26 | Outpatient (CLI) | payer BC, SELFPAY ==
[2020-02-04 00:17] LABS: COVID-19 RT-PCR Result NEGATIVE (Negative)
== END 2020-02-02 07:46 ==
PROVIDERS: PCP Nurse Practitioner; Visit Provider Orthopaedic Surgery
DX: Z01.818 Encounter for other preprocedural examination (principal)
CPT/HCPCS: U0003

== ENCOUNTER 2020-02-05 06:03 | Inpatient (IN) | payer BC, SELFPAY ==
[2020-02-05] VITALS (13 sets, daily range): BP systolic 101–132; BP diastolic 45–73; PULSE 55–84; RESP 8–18; TEMP 35.6–36.9; O2SAT 90–99
--- NOTE | 2020-02-05 | DI.RAD_ITS ---
EXAM: XR KNEE RT 2V AP,LAT CLINICAL HISTORY: check total knee components in RR TECHNIQUE: COMPARISON: CR XR KNEE RT 2V AP,LAT from 01/16/2020 FINDINGS: Two views were obtained. There is a total knee joint replacement in position. The components appear well seated. No other significant bony abnormality seen. IMPRESSION:
[2020-02-05] MEDS: Lactated Ringers 1,000 ML 80 ML IV (06:57)
[2020-02-05] MEDS: Bupivacaine 0.25% Pres-Free 30 ML VIAL (07:38)
[2020-02-05] MEDS: Bupivacaine LIPOSOME/PF 133 MG/10 ML VIAL IJ (07:38)
[2020-02-05] MEDS: ceFAZolin 2 GM/50 ML BAG IVPB ×3 (08:07→21:29)
[2020-02-05] MEDS: Hydrogen Peroxide 3% 480 ML BTL (09:38)
[2020-02-05] MEDS: HYDROcodone 5/Acetaminophen 325 TAB PO (12:30)
[2020-02-05] MEDS: POTASSIUM CHLORIDE/0.9% NACL 1,000 ML 125 MEQ IV ×2 (12:31→22:27)
[2020-02-05] MEDS: Docusate Sodium 100 MG CAP PO ×2 (13:55→19:56)
[2020-02-05] MEDS: Ketorolac 30 MG/ML VIAL IVP ×2 (13:55→19:56)
[2020-02-05] MEDS: Gabapentin 100 MG CAP PO ×2 (13:55→19:56)
[2020-02-05] MEDS: Normal Saline Flush 10 ML SYR IV ×3 (13:56→19:56)
--- NOTE | 2020-02-05 14:24 | PHACLINREV_ITS ---
<Bouchra Snowden - Last Filed: 02/05/20 14:24> Pharmacy Admission Review - Admission Clinical Review sulfamethoxazole [From Bactrim] Adverse Reaction (Intermediate, Verified 02/05/20 06:06) Vomiting and fever trimethoprim [From Bactrim] Adverse Reaction (Intermediate, Verified 02/05/20 06:06) Vomiting and fever Height 5 ft 5 in Weight 94.1 kg - Renal Dosing Medications needing adjustments: Reviewed (CrCl ~79.5 using adjusted BW, current meds okay) - Anticoagulation DVT Prohphylaxis: Reviewed Medications: Enoxaparin Therapeutic Anticoagulation: N/A - Opiate Usage Evaluate Pain Scale/Pains Meds: Reviewed (Hydrocodone/APAP, morphine, oxycodone,) Scheduled Bowel Reg ordered if on Opiates?: Yes (Docusate) - Relevant Labs Electrolytes, C-Reactive P, ESR: N/A (No current labs) - DM Control Insulin Dosing: N/A (No DM, no current glucose labs) - Heart Failure/MS EF%, RENU's, B-Blockers, Diuretics: N/A - BP Control BP Control: Blood Pressure 123/69 Blood Pressure 120/58 Blood Pressure 109/52 Blood Pressure 114/49 Blood Pressure 116/45 Blood Pressure 111/47 Blood Pressure 101/45 Blood Pressure 132/73 If elevated: N/A (BP good, seems to be on the lower end of the normal range) - Qtc Review If Elevated: N/A (No EKG labs) - IV to PO Switch IV Medications: Reviewed (IV cefazolin, IV ketorolac, IV morphine, IV promethazine, IV potassium chloride) - Home Meds Home Med List reviewed: Reviewed - Current meds Current Medication Order Review: Reviewed (Watch for CENTRAL STERILE TECH and respiratory depression (multiple drug interactions), will DC water for injection (IJ) and normal saline (IJ)) - Comments Comments/Follow Ups: Watch for labs once they come in, watch for any drug changes (switch to PO) <Mery Morgan - Last Filed: 02/06/20 14:52> Pharmacy Admission Review - Admission Clinical Review sulfamethoxazole [From Bactrim] Adverse Reaction (Intermediate, Verified 02/05/20 06:06) Vomiting and fever trimethoprim [From Bactrim] Adverse Reaction (Intermediate, Verified 02/05/20 06:06) Vomiting and fever Height 5 ft 5 in Weight 94.1 kg - Renal Dosing Medications needing adjustments: Reviewed (CrCl ~79.5 mL/min using adjusted BW, current meds okay) - Anticoagulation DVT Prohphylaxis: Reviewed Medications: Enoxaparin Therapeutic Anticoagulation: N/A - Opiate Usage Evaluate Pain Scale/Pains Meds: Reviewed Scheduled Bowel Reg ordered if on Opiates?: Yes - Relevant Labs Electrolytes, C-Reactive P, ESR: N/A - DM Control Insulin Dosing: N/A - Heart Failure/MS EF%, RENU's, B-Blockers, Diuretics: N/A - BP Control BP Control: Blood Pressure 138/83 Blood Pressure 113/67 Blood Pressure 113/69 If elevated: N/A - Qtc Review If Elevated: N/A - IV to PO Switch IV Medications: Reviewed - Home Meds Home Med List reviewed: Reviewed - Current meds Current Medication Order Review: Reviewed (Watch for CENTRAL STERILE TECH and respiratory depression (multiple drug interactions)) - Comments Comments/Follow Ups: Patient did have a slightly elevated temperature (38.4 C). Per MD this is common for post op joint replacement. Monitor temperature. Per MD if patient is taking only PO pain meds tomorrow and is independent with transfers she can be discharged Antibiotic Activity - Pharmacy Antibiotic Review Pharmacy Antibiotic Activity: Reviewed, no change (Patient currently on cefazolin 2 g IV q6h)
--- NOTE | 2020-02-05 15:49 | IN_ITS ---
PT Notes Visit Reasons: R TOTAL KNEE Physical Therapy Inpatient Initial Evaluation Date: 02/05/2020 Referring Doctor: Jaxson PT Orders: PT CONSULT: Status post Ortho surgery. Get patient OOB ambulating in her room this afternoon. Precautions: Fall. Standard. WBAT on right LE. Knee immobilizer on when out of bed. Patient Profile/Admitting Diagnosis: Renato is a 64-year-old female with primary unilateral osteoarthritis of the right knee status post right total knee arthroplasty on postoperative day 0. PMHX: Medical History (Updated 02/01/20 @ 13:11 by Lynn Rasmussen) GERD (gastroesophageal reflux disease) (Chronic) Hypothyroidism (Acute 08/28/13) Osteoarthritis (Chronic) Psoriasis (Acute 08/28/13) Stress-induced Surgical History (Updated 02/01/20 @ 13:11 by Lynn Rasmussen) History of colonoscopy (Chronic) History of decompression of ulnar nerve (Resolved) [facility] History of esophagogastroduodenoscopy (EGD) (Chronic) History of repair of right rotator cuff (Resolved) [facility] Status post total left knee replacement (Inactive) Social History/Home Situation: Renato lives with in a one-story private home with 2 steps to enter and a rail on one side. She is independent with all aspects of ADLs without the need for an assistive ambulatory device nor adaptive equipment she had her left total knee arthroplasty back in January 2019 and has since recovered and regained independent prior level of function. Equipment Owned/DME: Front wheeled walker Subjective: Judy reports that her right foot feels like it is sleeping and she indicates that her right knee feels so unsteady but she was able to get into groove of walking after a few steps. She states aching pain in the right knee at time of evaluation and reports a pulling in the back of the knee when she tried sitting up. Objective: General Observation: Forest wraps and right knee. Knee immobilizer in right knee. Portable wound VAC in place. Evangelista catheter in place. IV in the right brachium. TEDS in the left leg. Mental Status: Alert and oriented x4 Pain: 1/10 which she describes as aching sensation in the right knee Vital Signs: Within normal limits as monitored by nursing staff before and during PT session ROM: Right Upper Extremity: Shoulder Flexion allows only 90 degrees due to a pre- existing rotator cuff issue. Shoulder abduction 80 degrees due to a pre-existing rotator cuff issue. Elbow flexion WFL. Wrist flexion WFL. Opening and closing of hand WFL. Left Upper Extremity: Shoulder Flexion WFL. Shoulder abduction WFL. Elbow flexion WFL. Wrist flexion WFL. Opening and closing of hand WFL. Right Lower Extremity: Hip flexion allows up to 10 degrees from horizontal while in supine. Hip abduction about 10 degrees in supine. Knee flexion not tested. Ankle dorsiflexion WFL. Ankle plantarflexion WFL. Left Lower Extremity: Hip flexion WFL. Hip abduction WFL. Knee flexion WFL. Ankle dorsiflexion WFL. Ankle plantarflexion WFL. Strength: Right Upper Extremity: Shoulder flexors 3-/5. Shoulder abductors 3-5. Elbow flexors 5/5. Elbow extensors 5/5. 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 Left Upper Extremity: Shoulder flexors 5/5. Shoulder abductors 5/5. Elbow flexors 5/5. Elbow extensors 5/5. 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 Right Lower Extremity: Hip flexors 3-/5. Hip abductors 3-/5. Knee flexors NT. Knee extensors NT. Ankle dorsiflexors 4-/5. Ankle plantarflexors 4-/5. Left Lower Extremity: Hip flexors 4/5. Hip abductors 4/5. Knee flexors 4/5. Knee extensors 4/5. Ankle dorsiflexors 4/5. Ankle plantarflexors 4/5. Bed Mobility/Tr ansfers: Supine to sit with HOB 30 Sit to stand minimal assist Stand to sit minimal assist Bed to chair minimal assist Chair to bed minimal assist Gait: 40 feet using front wheeled walker with WBAT on the right LE requiring minimal assist with step to gait pattern. Reported mild instability on right knee initially but was able to voluntarily activate quads with verbal cueing from PT. Decreased payal. Balance: Static Sitting: Normal Dynamic Sitting: Normal Static Standing: Fair Dynamic Standing: Fair Special Tests: Mobility Limitations Standardized Measure [facility] AM-PAC 6 clicks Basic Mobility Inpatient Short Form: Raw Score: 17 CMS Score: 50% deficit Informed Consent/Education: Patient instructed in purpose of PT consult and plan of care. Assessment: Heshameen demonstrates functional mobility decline requiring physical assistance and the use of front wheeled walker for all mobility ADL performance, unsteadiness in gait, difficulty with walking, generalized weakness, limitation of range of motion and strength due to postoperative status. Renato is a 64-year-old female with primary unilateral osteoarthritis of the right knee status post right total knee arthroplasty on postoperative day 0. Patient presents with clinical signs and symptoms consistent with current/admitting diagnoses that have resulted to mobility limitations, gait instability, generalized weakness, and impairment of motor control as demonstrated by the following impairment level findings: 1. Decreased strength to right knee major muscle groups 2. Impaired sitting/standing balance 3. Impaired activity tolerance 4. Limitation of joint range of motion in right knee Impairments are contributing to the following functional limitations: 1. Dependent bed mobility skills 2. Increased dependence with transfers 3. Inability to safely ambulate without assistive device and physical assistance 4. Increase completion time for mobility ADL performance 5. Increased fall risk 6. Inability to negotiate steps alone safely Patient is assessed as a 03124 moderate complexity based on the following: History: 64-year-old female with impairment level findings, functional limitations, and past medical history as indicated above Examination: Demonstrable impairment in strength, balance, and mobility level with underlying impairments and functional limitations as documented above Presentation:Evolving Decision Makin moderate complexity Goals: Goals X1 week 1. Supine-Sit independent 2. Sit-Supine independent 3. Sit-Stand independent 4. Stand-Sit independent 5. Bed-Chair independent 6. Chair-Bed independent 7. Independent gait on level surface with use of least restrictive device for at least 300 feet without report of pain nor dyspnea 8. Independent stair negotiation while holding onto bilateral rails for at least 5 steps without report of pain nor dyspnea 9. Independent with home exercise program 10. Good static and dynamic standing balance/tolerance Plan of Care/Treatment Plan: 1-2x/day, 7 days/week x 1 week. Plan of care has been reviewed with the [employer] providing the service under Physical Therapy direction. Initiate Physical Therapy intervention for strengthening, bed mobility, transfers, gait, stairs, balance training, use of assistive device. DISCHARGE RECOMMENDATIONS: Patient will benefit from home health PT services in order to progress mobility level using least restrictive assistive ambulatory device, assess home safety, identify additional equipment needs, and establish a functional maintenance program that will increase ability of patient to remain at home. TREATMENT CODE/TIME: 9716 2 x 30 minutes, 9753 0 x 23 minutes beginning at 15:49 PM. Thank you for the opportunity to participate in the care of this patient. Donna Loera PT, DPT, CLT [facility] [place], [place]
--- NOTE | 2020-02-05 16:49 | W.PM.OP ---
Date of service: 02/05/20 Time of Service: 08:17 Operative Note Operative Note DATE OF PROCEDURE: 02/05/20 PRE-OP DIAGNOSIS: Osteoarthritis right knee POST-OP DIAGNOSIS: same PROCEDURE: Right total knee arthroplasty SURGEON: Graham Puri HEALTH ECONOMIST: Bouchra Beltran ANESTHESIA: GETA PATHOLOGY: none sent TOURNIQUET TIME: 110 COMPLICATIONS: None Patient was transported to: PACU Patient's condition: stable Implants: Size 2-1/2 posterior cruciate substituting femoral component, size 2-1/2 tibial component, size 2-1/2 10 mm thick rotating platform polyethylene insert posterior cruciate substituting, 32 mm tri-prong patella component. All components were cemented Indications: Is a 64-year-old white female with progressive disability due to pain from osteoarthritis of her right knee. She has reached the point where was affecting her activities of daily living in terms of decreased mobility. She has previously undergone a successful left total knee arthroplasty. She feels he is at the point where she would like a right total knee arthroplasty to alleviate her pain. The risk and complications of procedure have been explained patient detail preop. Procedure Description: Patient was taken to the operating room on 02/05/2020 and placed supine operative table. Femoral nerve block was performed. She then had a general anesthetic administered. Once good anesthesia was obtained a roll was placed on the right buttock. Proximal tourniquet was applied to the right thigh. The right lower extremity was prepped from toes to tourniquet and draped free in the usual sterile fashion. Under proximal tourniquet control, an anterior midline incision was made beginning 4 inches proximal patella and extending to the tibial tubercle. Incision was carried down through the skin and subcu to the quadriceps tendon and knee joint capsule. A medial parapatellar capsular incision was then made and extended proximally longitudinally in line with the quadriceps tendon. Complete medial subperiosteal release was performed. The patella was everted and the knee was hyperflexed. There was extensive loss of articular cartilage in all 3 compartments of the knee. The distal femur was resected using intramedullary alignment guides and gait. Patient was found to require a size 2-1/2 posterior cruciate substituting femoral component. The hole for the intramedullary guide was plugged with cancellus bone obtained from distal femoral resection. The proximal tibia was resected using extra medullary alignment guides and jigs. Patient was found to require a size 2-1/2 tibial component. The keel for the tibial component was then reamed and punched on proper rotation alignment. Trial reduction showed a 10 mm insert allowed the knee to come easily to full extension. There was no laxity to varus valgus stressing from 0 to 90 degrees of flexion. Finally the patella was resected using patellar resection guide and oscillating saw. Care was taken to preserve 15 to 16 mm of patella bone. The drill guide for the tri-prong patella was then used to ream the holes for the patella component. 32 mm triplane patella was felt to be the right size. One batch of gentamicin method packet was vacuum mixed. The proximal tibia was prepared for cementing with pulse irrigation of bodies of saline solution and drying with peroxide soaked strip sponges. The methylmethacrylate was hand packed into the proximal tibia into the undersurface of the tibial component. Tibial component was inserted by hand and impacted in the place with the impactor and mallet. Excess cement was trimmed to the margins of the tibial component was cement was still soft using the plastic cement removal tool. Trial components were inserted the knee was extended further pressurized the cement. When the first batch of methylmethacrylate had cured the trial components were removed. Excess cement of the margins of the tibial component were removed with an osteotome and mallet. A second batch of gentamicin impregnated methylmethacrylate was vacuum mixed. The distal femur and patella were then prepared for cementing with pulse irrigation lavage of saline solution and drying with peroxide soaked strip sponges. The methylmethacrylate was hand packed onto the distal femur and patella and onto the posterior surfaces of the femoral component and patella component. The femoral component was impacted in the place with the impactor mallet further pressurized using a trial insert and extending the knee. Patella bone was then inserted and pressurized using the patella clamp. Excess cement was trimmed from the margins of the femoral component and the patella component while the cement was still soft using the plastic cement removal tool. When the second batch of methylmethacrylate had fully cured the trial insert was removed. Posterior recesses were checked and residual cement debris were removed at this time. The knee was irrigated final time with pulse irrigation lavage of saline solution. The actual insert 10 mm 2-1/2 posterior cruciate substituting was then inserted into the tibial tray and reduced on the femoral condyles. Patella tracking was anatomic using the rule of no thumb. The right knee was flexed that was soft goods and closure was begun. The wound margins were infiltrated 0.5% Marcaine with epinephrine solution down to the knee joint capsule. The medial parapatellar capsular incision and the incision of the quad tendon were repaired with interrupted [id number] sutures of #1 Vicryl suture material. Betadine and saline dilute Betadine and saline solution was instilled into the knee and allowed to stay for a minute before suctioning. Subcu was approximated interrupted 2-0 Vicryl sutures. A running subcuticular sutures of 3-0 Monocryl was performed supplemented with Steri-Strips to approximate skin edges. Negative pressure wound dressing was applied. I then applied ABD pads wrapped with a 6 inch [place] bandages over the negative pressure dressing. Tourniquet was released. Right lower extremity was placed in a knee immobilizer splint. Patient received 1 g of tranexamic acid prior to tourniquet inflation and a second gram of tranexamic acid upon tourniquet deflation. Patient also received 2 g of Ancef prior to inflation of the tourniquet. Patient and her anesthesia reversed without complications and she was discharged to recovery room in good condition.
[2020-02-05] MEDS: oxyCODONE-CR 10 MG TABCR PO (18:22)
[2020-02-05] MEDS: Triamcinolone 0.1% CR 15 GM TUBE TP (19:56)
[2020-02-06] VITALS (9 sets, daily range): BP systolic 98–138; BP diastolic 62–83; PULSE 68–82; RESP 16–18; TEMP 36.7–38.4; O2SAT 94–97
[2020-02-06] MEDS: Ketorolac 30 MG/ML VIAL IVP ×4 (02:24→20:20)
[2020-02-06] MEDS: ceFAZolin 2 GM/50 ML BAG IVPB ×2 (03:34→10:02)
[2020-02-06] MEDS: Levothyroxine 125 MCG TAB PO (05:26)
[2020-02-06] MEDS: oxyCODONE-CR 10 MG TABCR PO ×2 (05:27→17:21)
[2020-02-06] MEDS: POTASSIUM CHLORIDE/0.9% NACL 1,000 ML 125 MEQ IV (07:22)
[2020-02-06] MEDS: Multivitamin w/Minerals TAB 1 TAB PO (07:51)
[2020-02-06] MEDS: Triamcinolone 0.1% CR 15 GM TUBE TP ×2 (07:51→20:20)
[2020-02-06] MEDS: Pantoprazole 40 MG TABCR PO (07:52)
[2020-02-06] MEDS: Docusate Sodium 100 MG CAP PO ×3 (07:52→20:20)
[2020-02-06] MEDS: Gabapentin 100 MG CAP PO ×3 (07:52→20:20)
--- NOTE | 2020-02-06 10:23 | PT.INTREAT ---
Date of service: 02/06/20 Time of Service: 10:23 PT Notes Visit Reasons: R TOTAL KNEE Inpatient Physical Therapy Treatment Note [facility] Date: 02/06/2020 PRECAUTIONS: Fall, WBAT R LE SUBJECTIVE: Renato is pleasant and agreeable to participating in PT. She reports that she hasn't had any pain, just aching in her R knee. OBJECTIVE: PAIN: Patient c/o aching discomfort in R LE with ther ex and gait training BED MOBILITY/TRANSFERS Supine-sit: S in a.m.; I in p.m. Sit-supine: I Sit-stand: SBA Stand-sit: SBA in a.m.; S in p.m. Bed-chair: S Chair-bed: S GAIT Assistive Device: FWW Weight bearing: WBAT R LE Assist: SBA in a.m.; S in p.m. Distance: 100' x2 in a.m.; S in p.m. Deviation: Step-through gait pattern, knee immobilizer in place THEREX: Patient completed a LE strengthening and stabilization program, in a long-sitting position, as per flow sheet. STAIRS: Up/down 3x4 and 2x6 using 1 rail/SPC and a step-to pattern with SBA ASSESSMENT: Patient tolerated session well with minimal complaint of R LE aching with ther ex and gait training. She was able to tolerate a progression in gait distance with FWW support and supervision. She demonstrates independence with bed mobility at this time. PLAN: Continue with PT's POC TREATMENT CODE/TIME: Session 1: 25 minutes; 07702, [id number] Session 2: 20 minutes; [id number]
[2020-02-06] MEDS: Acetaminophen 325 MG TAB 650 MG PO (14:13)
[2020-02-06] MEDS: Enoxaparin 40 MG/0.4 ML SYR SC (14:13)
--- NOTE | 2020-02-06 14:30 | W.PM.PROGNOT ---
Date of Service Date of service: 02/06/20 Time of Service: 14:30 Assessment and Plan Assessment and plan (1) Status post total knee replacement: Status: Acute Assessment and plan: Assessment: Stable postop day #1 right total knee replacement. I explained to the patient that it is common to have a mild fever for up to 72 hours following total joint replacement. This is usually due to atelectasis from a general anesthesia. She is not quite independent enough I think for her to go safely home today. After discussing it with her she agrees that she would feel more comfortable staying overnight and going home tomorrow if improved. Plan: Encouraged to use her incentive spirometer to help reinflate her lungs. We will monitor her temperature. If she is fully independent with transfers and taking only p.o. pain meds tomorrow we will send her home. Subjective Subjective Interval history since last seen: She says she had to get some supplemental pain meds this afternoon after physical therapy. However she says she really did a lot with PT. She is a little concerned because she says she is running a fever. She thinks she can get out of bed by herself but physical therapy is not allowed her to so far. Exam Narrative Exam Narrative: Temperature 38 for vital signs stable. Neurovascular examination of the right foot is completely normal. She is voiding well. She walked 100 feet x 2. Still requires some assistance to transfer. Objective Objective Clinical Data: Vital Signs Temperature 38.4 C H 02/06/20 14:13 Temperature Source Tympanic 02/06/20 12:11 Pulse 82 02/06/20 11:28 Pulse Rhythm Regular 02/06/20 08:22 Respiratory Rate 16 02/06/20 11:28 Respiratory Effort Non-Labored 02/06/20 08:22 Respiratory Depth Normal 02/06/20 08:22 Respiratory Pattern Normal 02/06/20 08:22 Blood Pressure 138/83 02/06/20 11:28 Pulse Oximetry 97 02/06/20 11:28 Respiratory End-tidal CO2 40 02/05/20 11:42 Oxygen Delivery Method Room Air 02/06/20 11:28 Oxygen Flow Rate 0 02/06/20 11:28 Pain Level 3 02/06/20 14:13 Comment 02/06/20 12:11 Intake & Output 02/05/20 02/06/20 02/06/20 23:59 11:59 23:59 Intake Total 3034.667 / 3954.667 1300 / 1420 120 / 1420 Output Total 1624 1200 / 1200 Balance 1409.667 / 1978.7 100 / 220 120 / 220 Intake: IV 4. 1060 / 1060 Oral 1830 / 1930 240 / 360 120 / 360 Output: Urine 1624 1200 / 1200 Other: Urine Color Yellow Straw Urine Appearance Clear Clear Urine Odor Normal Normal Comment Void x1 in the toilet. Voiding Methods Toilet Toilet Diaper
--- NOTE | 2020-02-06 14:53 | CHAPLAIN ---
Renato told me this is her second knee replacement surgery and her recovery from her last surgery went very well. She expects to be going home today.
--- NOTE | 2020-02-06 15:06 | PDOC.CMIN ---
- If Service Date Differs Date of service: 02/06/20 Time of Service: 15:07 Care Management Initial Assess REASON FOR HOSPITALIZATION:: R Total Knee PAST MEDICAL HISTORY/PAST SURGICAL HISTORY:: Medical History. GERD (gastroesophageal reflux disease) (Chronic). Hypothyroidism (Acute 08/28/13). Osteoarthritis (Chronic). Psoriasis (Acute 08/28/13). Stress-induced. Surgical History. History of colonoscopy (Chronic). History of decompression of ulnar nerve (Resolved). [place] [facility] [place] History of esophagogastroduodenoscopy (EGD) (Chronic). History of repair of right rotator cuff (Resolved). [facility] [place]. Status post total left knee replacement (Inactive) PREVIOUS FUNCTIONAL STATUS/SOCIAL/FAMILY SUPPORTS:: Renato lives in [place] with her , Heber. 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 Her built the house they live in, and four other homes that they have lived in. They own a few rental homes in the area that they supplement their income with. She is independent at baseline. CURRENT FUNCTIONAL STATUS:: Renato was sitting up in her chair when CM met with her. She reported that she was feeling good post surgically. She reported that she had the other knee replaced a year ago, so she has good expectations for her recovery. She stated that she has a FWW and her home is all on one level (there is an upstairs that they use only when the grandchildren are visiting). She stated that she was hoping to go home today, but would be willing to stay until tomorrow, if indicated. CM will continue to follow. ADVANCE DIRECTIVES:: On file, Heber is listed as agent. Has patient been provided with info about the portal/API?: Yes Did the patient sign up for the portal?: Yes CODE STATUS:: Full Code INSURANCE COVERAGE / FINANCIAL ISSUES:: [employer] CURRENT HOME/COMMUNITY SERVICES/EQUIPMENT:: [facility]WW PRIMARY CARE PHYSICIAN:: Yoselyn Landrum POTENTIAL DISCHARGE NEEDS:: Evaluations for further needs, follow up appointments PATIENT/FAMILY EDUCATION NEEDS:: Review discharge instructions regarding activity levels and medications, discussion of self care needs including ask me three. ANTICIPATED BARRIERS TO DISCHARGE:: None identified. TRANSPORTATION:: Via private vehicle by family. PLAN:: Anticipate Renato will return home when medically cleared with no additional services. Her will drive her home via private vehicle. She will follow up with her PCP and discharge plan of care. CM will continue to follow.
--- NOTE | 2020-02-06 15:24 | PHACLINREV_ITS ---
Pharmacy Admission Review - Admission Clinical Review (Last Reviewed 02/05/20 @ 06:06 by Alan Nina) Status post total knee replacement (Acute) sulfamethoxazole [From Bactrim] Adverse Reaction (Intermediate, Verified 02/05/20 06:06) Vomiting and fever trimethoprim [From Bactrim] Adverse Reaction (Intermediate, Verified 02/05/20 06:06) Vomiting and fever Height 5 ft 5 in Weight 94.1 kg - Renal Dosing Medications needing adjustments: Reviewed (CrCl ~79.5 mL/min, current meds okay) - Anticoagulation DVT Prohphylaxis: Reviewed Medications: Enoxaparin Therapeutic Anticoagulation: N/A - Opiate Usage Evaluate Pain Scale/Pains Meds: Reviewed (Hydrocodone/APAP, morphine, oxycodone) Scheduled Bowel Reg ordered if on Opiates?: Yes (Docusate ) - Relevant Labs Electrolytes, C-Reactive P, ESR: N/A (No labs done this admission) - DM Control Insulin Dosing: N/A - Heart Failure/FL EF%, RENU's, B-Blockers, Diuretics: N/A - BP Control BP Control: Blood Pressure 138/83 Blood Pressure 113/67 Blood Pressure 113/69 If elevated: N/A (BP good) - Qtc Review If Elevated: N/A (No recent EKG labs) - IV to PO Switch IV Medications: Reviewed (IV cefazolin, ketorolac, morphine, promethazine) - Home Meds Home Med List reviewed: Reviewed (separate admin of levothyroxine from calcium/vitD) Relevent Home Meds Not ordered & why?: all home meds ordered - Current meds Current Medication Order Review: Intervened (Watch for respiratory and FISHING CAPTAIN depression (gabapentin, hydrocodone, morphine, oxycodone, promethazine, zolpidem). Adjusted vial size of morphine so not as much waste per dose for nursing, talked to provider about cefazolin, no stop time and provider usually discontinues after 4 doses.) - Comments Comments/Follow Ups: Patient had elevated temperature today, per MD this is common for post op joint replacement. Monitor temperature. Per MD if patient can take PO pain meds and is independent with transfers she can be discharged tomorrow. Watch for med changes (switch from IV to PO) Antibiotic Activity - Pharmacy Antibiotic Review Pharmacy Antibiotic Activity: D/C antibiotic (Cefazolin DC per MD)
[2020-02-06] MEDS: HYDROcodone 5/Acetaminophen 325 TAB PO (15:44)
[2020-02-06] MEDS: POTASSIUM CHLORIDE/0.9% NACL 1,000 ML 60 MEQ IV (21:48)
[2020-02-07] MEDS: Ketorolac 30 MG/ML VIAL IVP ×2 (02:39→08:03)
[2020-02-07 02:57] VITALS: BP 120/64; PULSE 77; RESP 18; TEMP 37.7; O2SAT 97
[2020-02-07] MEDS: Levothyroxine 125 MCG TAB PO (05:37)
[2020-02-07] MEDS: oxyCODONE-CR 10 MG TABCR PO (05:38)
[2020-02-07] MEDS: Multivitamin w/Minerals TAB 1 TAB PO (08:03)
[2020-02-07] MEDS: Pantoprazole 40 MG TABCR PO (08:03)
[2020-02-07] MEDS: Gabapentin 100 MG CAP PO (08:03)
[2020-02-07] MEDS: Docusate Sodium 100 MG CAP PO (08:03)
[2020-02-07] MEDS: Triamcinolone 0.1% CR 15 GM TUBE TP (08:04)
--- NOTE | 2020-02-07 08:24 | PT.INTREAT ---
Date of service: 02/07/20 Time of Service: 08:24 PT Notes Visit Reasons: R TOTAL KNEE Inpatient Physical Therapy Treatment Note [facility] Date: 02/07/2020 PRECAUTIONS: Fall, WBAT R LE SUBJECTIVE: Renato is pleasant and agreeable to participating in PT. She reports that she wasn't feeling well yesterday afternoon, but feels much better this morning and is ready to go home. OBJECTIVE: PAIN: No c/o pain BED MOBILITY/TRANSFERS Sit-stand: I Stand-sit: I Bed-chair: I Chair-bed: I GAIT Assistive Device: FWW Weight bearing: WBAT R LE Assist: S Distance: 260' Deviation: Step-through gait pattern, knee immobilizer in place THEREX: Patient completed a LE strengthening and stabilization program, in a long-sitting position, as per flow sheet. STAIRS: Up/down 3x4 and 2x6 using 1 rail/SPC and a step-to pattern with supervision ASSESSMENT: Patient tolerated session well without complaint of R LE discomfort. She demonstrates independence with bed mobility and transfers at this time. PLAN: Continue with PT's POC TREATMENT CODE/TIME: 25 minutes; [id number], [id number]
[2020-02-07 09:05] VITALS: BP 117/76; PULSE 80; RESP 18; TEMP 38; O2SAT 96
[2020-02-07 11:29] VITALS: TEMP 37.2
--- NOTE | 2020-02-07 12:29 | DSE_ITS ---
Date of service: 02/07/20 Time of Service: 12:30 DS: Diagnosis Discharge Diagnosis (1) Status post total knee replacement: Status: Acute Discharge Plan Disposition Patient Disposition: HOME Condition: Good Discharge Details Reason For Visit: R TOTAL KNEE Admit Date/Time: 02/05/20 06:03 Admit Provider: Graham Puri Attending Provider: Graham Puri Primary Care Provider: Yoselyn Landrum Hospital Course Hospital Course: Patient seen in the operating room on the day of admission 02/05/2020 where she underwent a right total knee replacement without complications. She progressed rapidly with her mobilization achieving full independence by 02/07/2020. She was afebrile and her vital signs are stable. She was independent with transfers and ambulation. She was taking only p.o. pain meds. It was felt she had achieved all her acute care goals and was ready for home discharge. Home Meds and New Rx's Prescriptions: New ibuprofen 600 mg tablet 600 mg PO TID Qty: 60 RF: 0 hydrocodone-acetaminophen 5-325 mg tablet 1 tab PO Q6H PRN (Reason: pain) Qty: 14 RF: 0 Continued fish oil-dha-epa 1,200-144-216 mg capsule 1 cap PO DAILY RF: 0 triamcinolone acetonide 0.1 % cream 1 applic Topical BID Qty: 30 RF: 1 calcium carbonate-vit D3-min 1 EACH tablet,chewable 1 ea PO HS RF: 0 levothyroxine 125 mcg Capsule 125 mcg PO DAILY RF: 0 pantoprazole 20 mg Tablet,Delayed Release (Dr/Ec) 20 mg PO DAILY RF: 0 acetaminophen 650 mg Tablet Extended Release 650 mg PO PRN PRNRF: 0 Discharge Instructions Additional Instructions: Elevate right leg when sitting. Apply Cryo/Cuff to right knee 4 times a day for an hour each time. May shower and get dressing wet tomorrow. Do not remove the dressing. I will take the dressing off next week. Follow-up with Dr. Puri next Wednesday. Walk every day as much as discomfort allows. Outpatient physical therapy on 02/09/2020 for range of motion strengthening of her right total knee. Take ibuprofen as prescribed. Take hydrocodone for breakthrough pain if needed. Take 1 baby aspirin (81 mg) twice a day for 30 days to prevent blood clots in the legs. Stand Alone Forms: Nursing Discharge Form Referrals: Graham Puri MD [ [facility] STAFF PHYSICIAN] - 02/21/20 11:00 am (/u Wednesday02/13/20) Activity:: Activity as Tolerated Equipment/Supplies:: Walker Diet:: As Tolerated Discharge Orders Discharge Orders: Discharge Order (Routine); Ordered 02/07/20 Ordered By: Graham Puri DS: Summary Status at Discharge Functional status at discharge: uses cane/walker Overall status at discharge: patient is not back to baseline Mental Status: mental status grossly normal Speech and Movement: speech and movement normal Mood: congruent mood Affect: normal affect Exam Psych Mental Status: mental status grossly normal Speech and Movement: speech and movement normal Mood: congruent mood Affect: normal affect DS: Data Vitals/I&O Vitals and I&O: Vital Signs Temperature 37.2 C 02/07/20 11:29 Temperature Source Tympanic 02/07/20 09:05 Pulse 80 02/07/20 09:05 Pulse Rhythm Regular 02/07/20 08:15 Respiratory Rate 18 02/07/20 09:05 Respiratory Effort 02/07/20 08:15 Respiratory Depth Normal 02/07/20 08:15 Respiratory Pattern Normal 02/07/20 08:15 Blood Pressure 117/76 02/07/20 09:05 Pulse Oximetry 96 02/07/20 09:05 Respiratory End-tidal CO2 40 02/05/20 11:42 Oxygen Delivery Method Room Air 02/07/20 09:05 Oxygen Flow Rate 0 02/07/20 09:05 Pain Level 0 02/07/20 09:05 Comment 02/07/20 09:05 Intake & Output 02/06/20 02/07/20 02/07/20 23:59 11:59 23:59 Intake Total 1370 / 2670 460 / 460 Output Total 900 / 2099 1850 / 1850 Balance 470 / 570 -1390 / -1390 Intake: IV 1010 / 0 Oral 360 / 600 450 / 450 Output: Urine 900 / 2099 1850 / 1850 Other: Urine Color Dark Hanny Light Hanny Urine Appearance Clear Clear Urine Odor Normal None Voiding Methods Toilet Toilet [facility] Medical History GERD (gastroesophageal reflux disease) (Chronic) Hypothyroidism (Acute 08/28/13) Osteoarthritis (Chronic) Psoriasis (Acute 08/28/13) Stress-induced Surgical History (Updated 02/06/20 @ 14:35 by Graham Puri MD) History of colonoscopy (Chronic) History of decompression of ulnar nerve (Resolved) [facility] [place] History of esophagogastroduodenoscopy (EGD) (Chronic) History of repair of right rotator cuff (Resolved) [facility] [place] Status post total left knee replacement (Inactive) Family History Mother Heart disease Father Dementia Peripheral neuropathy Sister Diabetes Social History (Updated 02/01/20 @ 13:12 by Lynn Rasmussen) Smoking/Tobacco Use Status: Never Second Hand Exposure: No Alcohol Intake: current Alcohol Intake frequency: holidays/special occasions only Drug use: Never Substance use type: does not use 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
--- NOTE | 2020-02-07 13:37 | NUR.NOTE ---
Nursing Note: AT 1145 I REPORTED TO SEJAL, POWER SYSTEM ELECTRICAL ENGINEER THAT PT HAD A TEMPERATURE OF 38C AND IT CAME DOWN TO 37.2C. HAVE BEEN ENCOURAGING IS USE WITH PATIENT. PT WAS ABLE TO DEMONSTRATE IS APPROPRIATELY AND WAS ABLE TO GET UP TO 2000. PT REPORTED SHE DOES IT ALMOST 10X/HOUR.
--- NOTE | 2020-02-07 13:47 | PDOC.CMDIS ---
- If Service Date Differs Date of service: 02/07/20 Time of Service: 13:47 LACE Index Scoring Tool - Questions: Length of Stay (in days): 3 Acuity (Admit via E.D.?): No E.D. Visits: 0 - Answers: Total Score: 3 Risk of Readmission: Low Risk Care Management Discharge Reason for Hospitalization: R Total Knee Discharge Plan: Renato will return home with no additional services at this time. She will follow up with Ortho and her discharge plan of care. Her will drive her home via private vehicle. She is happy to be going home. Patient/Family Education Needs: Review discharge instructions regarding activity levels and medications, discussion of self care needs including ask me three.
--- NOTE | 2020-02-09 11:59 | INDS_ITS ---
Date of service: 02/09/20 PT Notes Visit Reasons: R TOTAL KNEE Inpatient Physical Therapy Discharge Summary Date: 02/09/2020 Dates of service: 02/05/2020 through 02/06/2020 This is a clinical summary of care provided on the duration of dates listed above. No charge was made in the completion of this documentation. Referring Doctor: Jaxson PT Orders: PT CONSULT: Status post Ortho surgery. Get patient OOB ambulating in her room this afternoon. Precautions: Fall. Standard. WBAT on right LE. Knee immobilizer on when out of bed. Patient Profile/Admitting Diagnosis: Renato is a 64-year-old female with primary unilateral osteoarthritis of the right knee status post right total knee arthroplasty on postoperative day 1 on day of discharge. PMHX: Medical History (Updated 02/01/20 @ 13:11 by Lynn Rasmussen) GERD (gastroesophageal reflux disease) (Chronic) Hypothyroidism (Acute 08/28/13) Osteoarthritis (Chronic) Psoriasis (Acute 08/28/13) Stress-induced Surgical History (Updated 02/01/20 @ 13:11 by Lynn Rasmussen) History of colonoscopy (Chronic) History of decompression of ulnar nerve (Resolved) [place] [facility] [place] of esophagogastrodu[place]oscopy (EGD) (Chronic) History of repair of right rotator cuff (Resolved[place] [facility] [place] post total left knee replacement (Inactive) Social History/Home Situation: Renato lives with in a one-story private home with 2 steps to enter and a rail on one side. She is independent with all aspects of ADLs without the need for an assistive ambulatory device nor adaptive equipment she had her left total knee arthroplasty back in January 2019 and has since recovered and regained independent prior level of function. Equipment Owned/DME: Front wheeled walker Subjective: NT. See most recent CARGO SURVEYOR notes. Objective: General Observation: NT. See most recent CARGO SURVEYOR notes. Mental Status: NT. See most recent CARGO SURVEYOR notes. Pain: NT. See most recent CARGO SURVEYOR notes. Vital Signs: NT. See most recent CARGO SURVEYOR notes. ROM: Right Upper Extremity: Shoulder Flexion allows only 90 degrees due to a pre- existing rotator cuff issue. Shoulder abduction 80 degrees due to a pre-existing rotator cuff issue. Elbow flexion WFL. Wrist flexion WFL. Opening and closing of hand WFL. Left Upper Extremity: Shoulder Flexion WFL. Shoulder abduction WFL. Elbow flexion WFL. Wrist flexion WFL. Opening and closing of hand WFL. Right Lower Extremity: Hip flexion allows up to 10 degrees from horizontal while in supine. Hip abduction about 10 degrees in supine. Knee flexion not tested. Ankle dorsiflexion WFL. Ankle plantarflexion WFL. Left Lower Extremity: Hip flexion WFL. Hip abduction WFL. Knee flexion WFL. Ankle dorsiflexion WFL. Ankle plantarflexion WFL. Strength: Right Upper Extremity: Shoulder flexors 3-/5. Shoulder abductors 3-5. Elbow flexors 5/5. Elbow extensors 5/5. 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 Left Upper Extremity: Shoulder flexors 5/5. Shoulder abductors 5/5. Elbow flexors 5/5. Elbow extensors 5/5. 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 Right Lower Extremity: Hip flexors 3-/5. Hip abductors 3-/5. Knee flexors NT. Knee extensors NT. Ankle dorsiflexors 4-/5. Ankle plantarflexors 4-/5. Left Lower Extremity: Hip flexors 4/5. Hip abductors 4/5. Knee flexors 4/5. Knee extensors 4/5. Ankle dorsiflexors 4/5. Ankle plantarflexors 4/5. Bed Mobility/Tr ansfers: Supine to sit independent Sit to stand independent Stand to sit independent Bed to chair independent Chair to bed independent Gait: 1-60 with front wheeled walker with WBAT on the right requiring supervision. Up-and-down three 4 inch steps and step up to gait pattern with hand on one rail and single-point cane on the other hand requiring supervision. Balance: Static Sitting: Normal Dynamic Sitting: Normal Static Standing: Fair Dynamic Standing: Fair Assessment: Renato demonstrates functional mobility decline requiring physical assistance and the use of front wheeled walker for all mobility ADL performance, unsteadiness in gait, difficulty with walking, generalized weakness, limitation of range of motion and strength due to postoperative status. Renato is a 64-year-old female with primary unilateral osteoarthritis of the right knee status post right total knee arthroplasty on postoperative day 1 day of discharge. Patient continues to present with clinical signs and symptoms consistent with current/admitting diagnoses that have resulted to mobility limitations, gait instability, generalized weakness, and impairment of motor control as demonstrated by the following impairment level findings: 1. Decreased strength to right knee major muscle groups 2. Impaired standing balance 3. Impaired activity tolerance 4. Limitation of joint range of motion in right knee Impairments are continuing to contribute to the following functional limitations: 1. Inability to safely ambulate without assistive device and physical assistance 2. Increase completion time for mobility ADL performance 3. Increased fall risk 4. Inability to negotiate steps alone safely Goals: Goals X1 week 1. Supine-Sit independent MET 2. Sit-Supine independent MET 3. Sit-Stand independent MET 4. Stand-Sit independent MET 5. Bed-Chair independent MET 6. Chair-Bed independent MET 7. Independent gait on level surface with use of least restrictive device for at least 300 feet without report of pain nor dyspnea NOT MET 8. Independent stair negotiation while holding onto bilateral rails for at least 5 steps without report of pain nor dyspnea NOT MET 9. Independent with home exercise program NOT MET 10. Good static and dynamic standing balance/tolerance NOT MET DISCHARGE RECOMMENDATIONS: Patient will benefit from home health PT services in order to progress mobility level using least restrictive assistive ambulatory device, assess home safety, identify additional equipment needs, and establish a functional maintenance program that will increase ability of patient to remain at home. TREATMENT CODE/TIME: NC. Thank you for the opportunity to participate in the care of this patient. Donna Loera PT, DPT, CLT [facility] [place], [place]
== END 2020-02-07 13:54 | disposition home or self-care (01) | DRG 470 ==
LOC: PDS 07:34 → MS 11:17
PROVIDERS: Admitting Provider Orthopaedic Surgery; PCP Nurse Practitioner; Visit Provider Orthopaedic Surgery
PROC: 0SRC0J9 Replacement of Right Knee Joint with Synthetic Substitute, Cemented, Open Approach (ICD-10-PCS; CPT 27447; principal; 2020-02-05 08:15)
DX: M17.11 Unilateral primary osteoarthritis, right knee (principal); J95.89 Other postprocedural complications and disorders of respiratory system, not elsewhere classified; J98.11 Atelectasis; M25.561 Pain in right knee; Z96.651 Presence of right artificial knee joint; E03.9 Hypothyroidism, unspecified; G89.18 Other acute postprocedural pain; K21.9 Gastro-esophageal reflux disease without esophagitis
CPT/HCPCS: 27447; 76942; 97110; 97162; 97530; J1650; NC; 73560; J0690; J1885; J2001; J2250; J2405; J2704; J3010; L1830

== ENCOUNTER 2020-04-01 10:45 | Outpatient (REF) | payer BC, SELFPAY ==
[2020-04-01 19:46] LABS: TSH (W/Ref FT4) 0.83 uIU/mL (0.36-3.74)
== END 2020-04-01 11:05 ==
LOC: NCHCN 10:45
PROVIDERS: PCP Nurse Practitioner; Visit Provider Nurse Practitioner
DX: E03.9 Hypothyroidism, unspecified (principal)
CPT/HCPCS: 84443

== ENCOUNTER → 2020-05-21 09:14 | Outpatient (BNVA) | payer MEDICARE, BC, SELFPAY | PROVIDERS: PCP Nurse Practitioner; Visit Provider Orthopaedic Surgery | DX: Z47.1 Aftercare following joint replacement surgery (principal); Z96.651 Presence of right artificial knee joint | CPT/HCPCS: 99213 ==

== ENCOUNTER 2020-09-26 17:44 | Outpatient (REF) | payer MEDICARE, BC, SELFPAY ==
[2020-09-27 10:05] LABS: TSH (W/Ref FT4) 0.19 uIU/mL (0.36-3.74)
[2020-09-27 10:26] LABS: FREE T4 1.66 ng/dL (0.76-1.46)
[2020-09-27 10:37] LABS: Calculated LDL 166 mg/dL (<100); Cholesterol 243 mg/dL (<200); HDL Cholesterol 59 mg/dL (40-60); Triglyceride 90 mg/dL (<150)
== END 2020-09-26 17:45 | disposition home or self-care (01) ==
LOC: NCHCN 17:44
PROVIDERS: PCP Nurse Practitioner; Visit Provider Nurse Practitioner
DX: E03.9 Hypothyroidism, unspecified (principal); E78.5 Hyperlipidemia, unspecified
CPT/HCPCS: 80061; 84439; 84443

== ENCOUNTER 2020-10-03 12:53 | Outpatient (REF) | payer MEDICARE, BC, SELFPAY ==
[2020-10-03 16:30] LABS: ALT 23 U/L (14-59); AST 15 U/L (15-37); Albumin 3.8 g/dL (3.4-5.0); Alkaline Phosphatase 100 U/L (46-116); Anion Gap 8.1 mmol/L (3-11); BUN 11 mg/dL (7-18); Bilirubin, Total 0.4 mg/dL (0.2-1.0); CO2 26.9 mmol/L (21.0-32.0); CREATININE 0.7 mg/dL (0.55-1.02); Calcium 9.6 mg/dL (8.5-10.1); Chloride 105 mmol/L (98-107); Glucose 96 mg/dL (74-106); Sodium 140 mmol/L (136-145); Vitamin B12 349 pg/mL (193-986)
[2020-10-03 20:32] LABS: Vitamin D 25 Total 29.1 ng/mL (30-100)
== END 2020-10-03 12:54 | disposition home or self-care (01) ==
LOC: NCHCN 12:53
PROVIDERS: PCP Nurse Practitioner; Visit Provider Nurse Practitioner
DX: E03.9 Hypothyroidism, unspecified (principal); M19.90 Unspecified osteoarthritis, unspecified site; E55.9 Vitamin D deficiency, unspecified; Z13.21 Encounter for screening for nutritional disorder
CPT/HCPCS: 80053; 82306; 82607

== ENCOUNTER 2020-11-07 09:26 | Outpatient (REF) | payer MEDICARE, BC, SELFPAY ==
[2020-11-07 16:04] LABS: ALT 26 U/L (14-59); Calculated LDL 77 mg/dL (<100); Cholesterol 154 mg/dL (<200); HDL Cholesterol 61 mg/dL (40-60); TSH (W/Ref FT4) 0.09 uIU/mL (0.36-3.74); Triglyceride 83 mg/dL (<150)
[2020-11-07 16:55] LABS: FREE T4 1.47 ng/dL (0.76-1.46)
== END 2020-11-07 09:27 | disposition home or self-care (01) ==
LOC: NCHCN 09:26
PROVIDERS: PCP Nurse Practitioner; Visit Provider Family Medicine
DX: E03.9 Hypothyroidism, unspecified (principal); E78.5 Hyperlipidemia, unspecified; K21.9 Gastro-esophageal reflux disease without esophagitis; R13.10 Dysphagia, unspecified
CPT/HCPCS: 80061; 84439; 84443; 84460

== ENCOUNTER 2020-11-18 02:13 | Outpatient (CLI) | payer MEDICARE, BC, SELFPAY ==
--- NOTE | 2020-11-18 | DI.US_ITS ---
Exam(s) US ABDOMEN EXAM: US ABDOMEN CLINICAL HISTORY: RUQ ABD PAIN, R10.11,EPIGASTRIC PAIN, R10.13,DYSPHAGIA,R13.10,EARLY SATEITY TECHNIQUE: Ultrasound of complete upper abdomen performed using standard protocol. COMPARISON: US US OR ANESTHESIA from 02/05/2020 FINDINGS: There is no ascites evident. LIVER: There are no hepatic lesions evident nor obvious dilatation of intrahepatic ducts. GALLBLADDER/BILIARY: Gallbladder examination is limited as the gallbladder was contracted. Gallbladd er wall appears somewhat thickened probably related to contraction. Suspicion for gallstones but req uires repeating after longer fasting. The common hepatic duct isupper normal, measuring 6mm at the level of martínez hepatis. PANCREAS: There is no evidence of pancreatic mass nor dilatation of the pancreatic duct. SPLEEN: The spleen is not enlarged and there are no intrasplenic lesions evident. KIDNEYS:Kidneys exhibit normal size. There appears to be mild hydronephrosis of the left kidney vers us parapelvic cysts.. No solid masses. No similar findings in the right kidney. Both kidneys exhib it normal size. ABDOMINAL AORTA: There is no evidence of abdominal aortic aneurysm. IVC: Normal diameter where visualized. IMPRESSION: 1. Gallbladder is contracted and difficult to evaluate but may contain calculi. This study should b e repeated after longer fasting interval. 2. Parapelvic cysts versus mild hydronephrosis of the left kidney. Right kidney appears unremarkabl e. 3. There is no ascites. DATA REPOSITORY:
== END 2020-11-18 02:33 ==
PROVIDERS: PCP Nurse Practitioner; Visit Provider Internal Medicine Gastroenterology
DX: R10.11 Right upper quadrant pain (principal); R10.13 Epigastric pain; R13.10 Dysphagia, unspecified
CPT/HCPCS: 76700

== ENCOUNTER 2020-12-04 02:10 | Outpatient (CLI) | payer MEDICARE, BC, SELFPAY ==
--- NOTE | 2020-12-04 08:30 | DI.NM_ITS ---
Exam(s) NM HEPATOBILIARY SCAN GRP EXAM: NM HEPATOBILIARY SCAN GRP CLINICAL HISTORY: RUQ PAIN, R10.11,ABNL FINDING ON IMAGING OF LIVER AND BILIARY TRACT,R93.2. TECHNIQUE: Injected dose: 5 mCi Tc-99 mebrofenin Initial dynamic images: 60 minutes Post-Gallbladder fillin.02 mcg/kg CCK intravenously over a 15min infusion. Addition images: 20 minute dynamic during CCK administration. COMPARISON: US US OR ANESTHESIA from 02/05/2020 US US ABDOMEN from 11/18/2020 FINDINGS: Normal hepatic transit time. Prompt excretion into the small bowel. The gallbladder is not visualized during this examination. The gallbladder is not visualized on the 2 hour delayed images. IMPRESSION: 1. Nonvisualization of the gallbladder. Findings suspicious for cholecystitis. SNM guidelines: Gallbladder visualization should be present by 3 hours. Delayed wdagbdh-di-evksy gray sit beyond 60 min raises the suspicion for partial common bile duct (CBD) obstruction. Gallbladder ejection fraction <35% has a good correlation with acalculous disease (i.e., chronic acal culous cholecystitis, cystic duct syndrome, sphincter of Oddi disease).
== END 2020-12-04 02:30 ==
PROVIDERS: PCP Nurse Practitioner; Visit Provider Internal Medicine Gastroenterology
DX: R10.11 Right upper quadrant pain (principal); R93.2 Abnormal findings on diagnostic imaging of liver and biliary tract; K82.8 Other specified diseases of gallbladder
CPT/HCPCS: 78227

== ENCOUNTER 2020-12-11 01:23 | Outpatient (CLI) | payer MEDICARE, BC, SELFPAY ==
[2020-12-11 08:42] LABS: CREATININE 0.8 mg/dL (0.55-1.02)
--- NOTE | 2020-12-11 09:35 | DI.CT_ITS ---
Exam(s) CT ABDOMEN PELVIS WO/W EXAM: CT ABDOMEN PELVIS WO/W CLINICAL HISTORY: HYDRONEPHROSIS LT, N13.30, US SHOWED KIDNEYS NL SIZE TECHNIQUE: Imaging Protocol: Axial computed tomography images with coronal and sagittal reformatted images were created and reviewed CONTRAST MATERIAL: Intravenous: Omnipaque 350 Contrast volume:100 mL Oral: No COMPARISON: US US ABDOMEN from 11/18/2020 FINDINGS: There is some delay in contrast administration. The venous images show IV contrast within the renal collecting system. This does limit evaluation of the abdominal organs. ABDOMEN: Lung Bases: Normal where visualized. Liver: Normal density. No measurable mass. The liver measures 18 cm in length. Portal, Superior Mesenteric, and Splenic Veins: Unremarkable. Gallbladder and Biliary Tract: The gallbladder is contracted and full of stones. The common duct is within normal limits at 0.7 cm. Pancreas: Normal density, no abnormal calcifications or inflammatory process. Spleen: Normal. Adrenals: There is a 1 cm left adrenal nodule with Hounsfield units of -14. No follow-up is recommen ded. The right adrenal gland is unremarkable. Kidneys: Normal size, contour and axis. No radiodense stones or obstructive uropathy. There are parap elvic cysts on the left. There is no evidence of hydronephrosis. Abdominal Aorta: Abdominal portion non-dilated. Mild atherosclerosis. Bowel: No obstruction or bowel wall thickening. Appendix is unremarkable. There is diverticulosis in the sigmoid colon, but no evidence of acute diverticulitis. There is a small hiatal hernia. Peritoneal Cavity: No ascites, collection or mesenteric inflammatory response. No free air. Lymph Nodes: Within normal limits. Bones: Within normal limits for the patient's age. Soft Tissues: Unremarkable. PELVIS: Bladder: Symmetric distention, no gross wall thickening. Reproductive Organs: Calcified masses are seen in the uterus consistent with degenerating fibroids. Lymph Nodes: Within normal limits. Bones: Within normal limits for the patient's age. IMPRESSION: 1. No evidence of hydronephrosis or nephrolithiasis. 2. Multiple left parapelvic cysts. 3. Cholelithiasis. No biliary ductal dilatation. 4. Sigmoid diverticulosis. No acute diverticulitis. 5. Uterine fibroids. RADIATION DOSE DELIVERED: 3,476.57mGy.cm Total DLP 3,476.57mGy.cm Total DLP DATA REPOSITORY: All CT scans at this facility are submitted to the National Radiology Data Registry (NRDR) Dose Index Registry (DIR) with the [employer] (ACR). RADIATION OPTIMIZATION: All CT scans at this facility use at least one of these dose optimization te chniques: automated exposure control; mA and/or kV adjustment per patient size (includes targeted exa ms where dose is matched to clinical indication); or iterative reconstruction.
[2020-12-11] MEDS: Omnipaque 350 MG/ML 100 ML BTL IJ (09:45)
[2020-12-11] MEDS: Normal Saline - Diluent 50 ML VIAL IV (09:45)
== END 2020-12-11 01:43 ==
PROVIDERS: PCP Nurse Practitioner; Visit Provider Nurse Practitioner
DX: N13.30 Unspecified hydronephrosis (principal); Z01.812 Encounter for preprocedural laboratory examination; K80.20 Calculus of gallbladder without cholecystitis without obstruction; D25.9 Leiomyoma of uterus, unspecified; K57.30 Diverticulosis of large intestine without perforation or abscess without bleeding
CPT/HCPCS: 74178; 82565; J3490

== ENCOUNTER 2020-12-27 11:03 | Outpatient (REF) | payer MEDICARE, BC, SELFPAY ==
[2020-12-27 19:55] LABS: TSH (W/Ref FT4) 3.52 uIU/mL (0.36-3.74)
== END 2020-12-27 11:04 | disposition home or self-care (01) ==
LOC: NCHCN 11:03
PROVIDERS: PCP Nurse Practitioner; Visit Provider Nurse Practitioner
DX: E03.9 Hypothyroidism, unspecified (principal)
CPT/HCPCS: 84443

== ENCOUNTER 2021-02-03 13:43 | Outpatient (CLI) | payer MEDICARE, BC, SELFPAY ==
--- NOTE | 2021-02-03 08:30 | DI.RAD_ITS ---
Exam(s) XR KNEE RT 2V AP,LAT EXAM: XR KNEE RT 2V AP,LAT CLINICAL HISTORY: annual f/u R TKA. TECHNIQUE: 2D digital imaging was performed. COMPARISON: CR XR KNEE RT 2V AP,LAT from 02/05/2020 FINDINGS: There is stable position alignment the components of the right knee prosthesis which was placed 1 yea r ago. No fracture or loosening evident. IMPRESSION: DATA REPOSITORY: RADIATION DOSE DELIVERED:
== END 2021-02-03 13:44 | disposition home or self-care (01) ==
LOC: DIORS 13:43
PROVIDERS: PCP Nurse Practitioner; Referring Provider Nurse Practitioner; Visit Provider Student in an Organized Health Care Education/Training Program
DX: Z96.651 Presence of right artificial knee joint (principal); Z47.1 Aftercare following joint replacement surgery
CPT/HCPCS: 99213; 73560

== ENCOUNTER 2021-02-20 01:24 | Outpatient (CLI) | payer MEDICARE, BC, SELFPAY ==
--- NOTE | 2021-02-20 07:45 | DI.MAMMO_ITS ---
Exam(s) MAMMO SCREENING EXAM: MAMMO SCREENING CLINICAL HISTORY: screening,Z12.39. TECHNIQUE: Bilateral full field digital CC and MLO mammographic images were obtained with 3D tomosyn thesis and utilizing computer aided detection (CAD). COMPARISON: Prior mammograms dating back to 2011, the most recent being January 2020. FINDINGS: There are no CAD designations There are no new spiculated masses nor malignant appearing microcalcification groups. There is no significant architectural distortion nor skin thickening-retraction. IMPRESSION: No radiographic evidence of malignancy. BI-RADS Category 1 - Negative Breast Density - Category A - Almost entirely fatty Breast density Category C or D implies that the patient has dense breast tissue. Dense breast tissue can make it harder to find cancer on a mammogram. Dense breast tissue is also associated with an incr eased risk of breast cancer. This information about the result of the mammogram report was provided to the patient to raise their awareness. Use this report when you speak with the patient about their risks for breast cancer, which includes their family history. At that time, you may recommend additional screening tests (Ultrasoun d or MRI) as these tests may add significant information. A negative radiographic report should not delay biopsy if a dominant or clinically suspicious mass is present. Up to ten percent of cancers are not identified on mammography. A negative report may reinforce clinical impression. Adenosis and dense breasts may obscure an underlying neoplasm. False positive reports average 6 to 10%. Patient will receive a letter notifying them of these results.
== END 2021-02-20 01:44 ==
PROVIDERS: PCP Nurse Practitioner; Visit Provider Nurse Practitioner Family
DX: Z12.31 Encounter for screening mammogram for malignant neoplasm of breast (principal)
CPT/HCPCS: 77063; 77067

== ENCOUNTER 2021-03-31 09:04 | Outpatient (REF) | payer MEDICARE, BC, SELFPAY ==
[2021-03-31 15:46] LABS: TSH (W/Ref FT4) 2.52 uIU/mL (0.36-3.74)
== END 2021-03-31 09:05 | disposition home or self-care (01) ==
LOC: NCHCN 09:04
PROVIDERS: PCP Nurse Practitioner; Visit Provider Nurse Practitioner
DX: E03.9 Hypothyroidism, unspecified (principal)
CPT/HCPCS: 84443

== ENCOUNTER 2021-10-06 18:17 | Outpatient (REF) | payer MEDICARE, SELFPAY ==
[2021-10-06 16:42] LABS: HCT 41.5 % (36.0-46.0); HGB 13.5 g/dL (11.2-15.7); MCH 29.1 pg (27.0-33.0); MCHC 32.5 % (32.0-36.0); MCV 89.4 fL (80-95); MPV 9.8 fL (8.0-11.0); Platelet Count 269 10^3/uL (130-400); RBC 4.64 10^6/uL (3.93-5.22); RDW 12.8 % (11.7-14.6); RDW-SD 41.9 fL; WBC 5.41 10^3/uL (4.4-10.8)
[2021-10-06 17:13] LABS: Anion Gap 7.8 mmol/L (3-11); BUN 16 mg/dL (7-18); CO2 29.2 mmol/L (21.0-32.0); CREATININE 0.7 mg/dL (0.55-1.02); Calcium 9.6 mg/dL (8.5-10.1); Chloride 105 mmol/L (98-107); Glucose 86 mg/dL (74-106); Sodium 142 mmol/L (136-145); TSH (W/Ref FT4) 2.08 uIU/mL (0.36-3.74)
== END 2021-10-06 18:18 | disposition home or self-care (01) ==
LOC: NCHCN 18:17
PROVIDERS: PCP Nurse Practitioner; Visit Provider Nurse Practitioner Family
DX: E78.5 Hyperlipidemia, unspecified (principal); E03.9 Hypothyroidism, unspecified; K21.9 Gastro-esophageal reflux disease without esophagitis
CPT/HCPCS: 80048; 85027; 84443

== ENCOUNTER 2021-11-14 00:54 | Outpatient (CLI) | payer MEDICARE, SELFPAY ==
--- NOTE | 2021-11-14 10:44 | DI.DEXA_ITS ---
Exam(s) XR DEXA BONE DENSITY W/WO NIKKI EXAM: XR DEXA BONE DENSITY W/WO NIKKI CLINICAL HISTORY: SCREENING OSTEOPOROSIS Z13.820 POST MENOPAUSAL Z78.0 GERD K21.9 HYPOTHYROID TECHNIQUE: Routine DEXA evaluation of the lumbar spine, hip, or forearm. COMPARISON: Compared to prior DEXA scan of 2012 FINDINGS: Performed on a [employer] unit. Lateral image: No compression fracture evident. Lumbar Spine total T-score: 0.6. Prior 2012 reading was 1.3 Hip total T-score:-0.1. Prior 2012 reading was 1.2. Independent reading at the level of the femoral neck yields at T-score of -0.3. Forearm total T-score: 0.5 IMPRESSION: Bone mineral density measures in the normal range. Fracture risk is low. Note: Any spine fracture indicates 5x risk for subsequent spine fracture and 2x risk for subsequent h ip fracture. World Health Organization criteria for BMD interpretation classify patients: Normal...... T- Score at or above -1.0 Osteopenic... T- Score between -1.0 and -2.5 Osteoporosis... T-Score at or below -2.5
== END 2021-11-14 01:14 ==
PROVIDERS: PCP Nurse Practitioner Family; Visit Provider Nurse Practitioner Family
DX: Z13.820 Encounter for screening for osteoporosis (principal); Z78.0 Asymptomatic menopausal state; E03.9 Hypothyroidism, unspecified
CPT/HCPCS: 77080

== ENCOUNTER → 2022-02-23 02:57 | Outpatient (CLI) | payer MEDICARE, SELFPAY ==
--- NOTE | 2022-02-23 08:00 | DI.MAMMO_ITS ---
Exam(s) MAMMO SCREENING EXAM: MAMMO SCREENING CLINICAL HISTORY: SCREENING, Z12.39 TECHNIQUE: Bilateral full field digital CC and MLO mammographic images were obtained with 3D tomosyn thesis and utilizing computer aided detection (CAD). COMPARISON: Available for comparison. FINDINGS: Masses/Architectural Distortion: None seen. Microcalcifications: No suspicious pleomorphic-type are seen. Skin Thickening/Nipple Retraction: None. IMPRESSION: 1. No significant interval change with no specific features of malignancy noted. 2. Unless there is more urgent need, screening mammography is recommended, as per [employer] guidelines. BI-RADS Category 1 - Negative Breast Density - Category A - Almost entirely fatty Breast density category C or D implies that the patient has dense breast tissue. Dense breast tissue is very common and is not abnormal but dense breast tissue can make it harder to find cancer on a ma mmogram. Also, dense breast tissue may increase their breast cancer risk. This information about the result of the mammogram report was provided to the patient to raise their awareness. Use this report when you speak with the patient about their risks for breast cancer, which includes their family hist ory. At that time, you may recommend for more screening tests (Ultrasound or MRI) as they might be us eful based on their risk. A negative radiographic report should not delay biopsy if a dominant or clinically suspicious mass is present. Up to ten percent of cancers are not identified on mammography. A negative report may reinforce clinical impression. Adenosis and dense breasts may obscure an underlying neoplasm. False positive reports average 6 to 10%. Patient will receive a letter notifying them of these results.
== END ==
PROVIDERS: PCP Nurse Practitioner Family; Visit Provider Nurse Practitioner Family
DX: Z12.31 Encounter for screening mammogram for malignant neoplasm of breast (principal)
CPT/HCPCS: 77063; 77067

== ENCOUNTER 2022-03-30 08:00 | Outpatient (REF) | payer MEDICARE, SELFPAY ==
[2022-03-30 15:18] LABS: HCT 40.5 % (36.0-46.0); HGB 13.5 g/dL (11.2-15.7); MCH 29.6 pg (27.0-33.0); MCHC 33.3 % (32.0-36.0); MCV 89 fL (80-95); MPV 9.7 fL (8.0-11.0); Platelet Count 287 10^3/uL (130-400); RBC 4.56 10^6/uL (3.93-5.22); RDW 12.4 % (11.7-14.6); RDW-SD 40.4 fL; WBC 5.29 10^3/uL (4.4-10.8)
[2022-03-30 16:01] LABS: ALT 25 U/L (14-59); AST 19 U/L (15-37); Alkaline Phosphatase 85 U/L (46-116); Anion Gap 7.4 mmol/L (3-11); BUN 10 mg/dL (7-18); Bilirubin, Total 0.5 mg/dL (0.2-1.0); CO2 31.6 mmol/L (21.0-32.0); CREATININE 0.8 mg/dL (0.55-1.02); Calcium 9.9 mg/dL (8.5-10.1); Calculated LDL 99 mg/dL (<100); Chloride 103 mmol/L (98-107); Cholesterol 186 mg/dL (<200); Estimated GFR 81.21 (mL/min/1.73m2); Glucose 86 mg/dL (74-106); HDL Cholesterol 74 mg/dL (40-60); Potassium 3.9 mmol/L (3.5-5.1); Sodium 142 mmol/L (136-145); TSH 3.25 uIU/mL (0.36-3.74); Total Protein 7.4 g/dL (6.4-8.2); Triglyceride 67 mg/dL (<150)
[2022-03-31 09:50] LABS: Hepatitis C Ab w Rflx HCV PCR Negative (Negative)
== END 2022-03-30 08:01 | disposition home or self-care (01) ==
LOC: NCHCN 08:00
PROVIDERS: PCP Nurse Practitioner Family; Visit Provider Nurse Practitioner Family
DX: Z51.81 Encounter for therapeutic drug level monitoring (principal); Z11.59 Encounter for screening for other viral diseases; K21.9 Gastro-esophageal reflux disease without esophagitis; K22.70 Barrett's esophagus without dysplasia; E03.9 Hypothyroidism, unspecified; E78.5 Hyperlipidemia, unspecified
CPT/HCPCS: 80053; 80061; 85027; 86803; 84443

== ENCOUNTER 2022-10-05 16:02 | Outpatient (REF) | payer MEDICARE, SELFPAY ==
[2022-10-05 16:22] LABS: Calculated LDL 106 mg/dL (<100); Cholesterol 185 mg/dL (<200); HDL Cholesterol 67 mg/dL (40-60); TSH (W/Ref FT4) 3.54 uIU/mL (0.36-3.74); Triglyceride 64 mg/dL (<150)
== END 2022-10-05 16:03 | disposition home or self-care (01) ==
LOC: NCHCN 16:02
PROVIDERS: PCP Nurse Practitioner Family; Visit Provider Nurse Practitioner Family
DX: E03.9 Hypothyroidism, unspecified (principal); E78.5 Hyperlipidemia, unspecified
CPT/HCPCS: 80061; 84443

== ENCOUNTER 2023-05-03 13:28 | Outpatient (REF) | payer MEDICARE, SELFPAY ==
[2023-05-03 15:14] LABS: Abs Immature Grans 0.01 10^3/uL (0.0-0.06); Absolute Basophil Count 0.05 10^3/uL (0.0-0.2); Absolute Eosinophil Count 0.33 10^3/uL (0.0-0.7); Absolute Lymphocyte Count 1.56 10^3/uL (1.2-3.4); Absolute Monocyte Count 0.69 10^3/uL (0.1-0.8); Basophils % 0.8; Eosinophils % 5.6; HGB 13.4 g/dL (11.2-15.7); Immature Grans % 0.2; Lymphocytes % 26.3; MCH 29.1 pg (27.0-33.0); MCHC 32.7 % (32.0-36.0); MCV 89 fL (80-95); MPV 9.5 fL (8.0-11.0); Monocytes % 11.6; Neutrophils % 55.5; Platelet Count 302 10^3/uL (130-400); RBC 4.61 10^6/uL (3.93-5.22); RDW 12.6 % (11.7-14.6); RDW-SD 41.2 fL; WBC 5.94 10^3/uL (4.4-10.8)
[2023-05-03 15:39] LABS: ALT 23 U/L (14-59); AST 15 U/L (15-37); Alkaline Phosphatase 82 U/L (46-116); Anion Gap 8.9 mmol/L (3-11); BUN 15 mg/dL (7-18); Bilirubin, Total 0.5 mg/dL (0.2-1.0); CO2 29.1 mmol/L (21.0-32.0); CREATININE 0.7 mg/dL (0.55-1.02); Calculated LDL 79 mg/dL (<100); Chloride 106 mmol/L (98-107); Cholesterol 166 mg/dL (<200); Estimated GFR 94.15 (mL/min/1.73m2); Glucose 95 mg/dL (74-106); HDL Cholesterol 65 mg/dL (40-60); Potassium 4.1 mmol/L (3.5-5.1); Sodium 144 mmol/L (136-145); TSH (W/Ref FT4) 2.43 uIU/mL (0.36-3.74); Total Protein 7.2 g/dL (6.4-8.2); Triglyceride 113 mg/dL (<150)
== END 2023-05-03 13:29 | disposition home or self-care (01) ==
LOC: NCHCN 13:28
PROVIDERS: PCP Nurse Practitioner Family; Visit Provider Nurse Practitioner Family
DX: E03.9 Hypothyroidism, unspecified (principal); E78.5 Hyperlipidemia, unspecified; Z00.00 Encounter for general adult medical examination without abnormal findings
CPT/HCPCS: 80053; 80061; 84443; 85025

== ENCOUNTER 2023-11-09 12:53 | Outpatient (REF) | payer MEDICARE, SELFPAY ==
[2023-11-09 15:47] LABS: ALT 26 U/L (14-59); AST 25 U/L (15-37); Alkaline Phosphatase 85 U/L (46-116); Anion Gap 13.2 mmol/L (3-11); BUN 16 mg/dL (7-18); Bilirubin, Total 0.4 mg/dL (0.2-1.0); CO2 24.8 mmol/L (21.0-32.0); CREATININE 0.8 mg/dL (0.55-1.02); Calcium 9.9 mg/dL (8.5-10.1); Chloride 104 mmol/L (98-107); Estimated GFR 80.21 (mL/min/1.73m2); Glucose 96 mg/dL (74-106); Potassium 4.2 mmol/L (3.5-5.1); Sodium 142 mmol/L (136-145); TSH 2.47 uIU/Ml (0.36-3.74); Total Protein 7.8 g/dL (6.4-8.2)
== END 2023-11-09 12:54 | disposition home or self-care (01) ==
LOC: NCHCN 12:53
PROVIDERS: PCP Nurse Practitioner Family; Visit Provider Nurse Practitioner Family
DX: Z00.00 Encounter for general adult medical examination without abnormal findings (principal)
CPT/HCPCS: 80053; 84443

== ENCOUNTER → 2023-12-29 00:55 | Outpatient (CLI) | payer MEDICARE, SELFPAY ==
--- NOTE | 2023-12-29 | DI.MAMMO_ITS ---
Exam(s) MAMMO SCREENING EXAM: MAMMO SCREENING CLINICAL HISTORY: screening, Z12.39 TECHNIQUE: Mammograms were interpreted according to the usual protocol including computer analysis w i[employer]py[employer] CAD system, tomosynthesis and C-view imaging. COMPARISON: 2014 through 2021 FINDINGS: The breasts are composed of mainly fatty density , Breast Density category A. No suspicious masses or suspicious microcalcifications are seen. No skin thickening or abnormal axillary lymph nodes are seen. There has been no significant change from prior exams. IMPRESSION: BI-RADS Category 1, Negative mammogram Yearly screening mammography is recommended. Breast Density - Category A, fatty density. A negative radiographic report should not delay biopsy if a dominant or clinically suspicious mass is present. Up to ten percent of cancers are not identified on mammography. A negative report may reinforce clinical impression. Adenosis and dense breasts may obscure an underlying neoplasm. False positive reports average 6 to 10%. Patient will receive a letter notifying them of these results.
== END ==
PROVIDERS: PCP Nurse Practitioner Family; Visit Provider Nurse Practitioner Family
DX: Z12.31 Encounter for screening mammogram for malignant neoplasm of breast (principal)
CPT/HCPCS: 77063; 77067

== ENCOUNTER 2024-10-09 02:03 | Outpatient (CLI) | payer MEDICARE, SELFPAY ==
--- NOTE | 2024-10-09 07:45 | DI.RAD_ITS ---
Exam(s) XR FOOT LT COMPLETE EXAM: XR FOOT LT COMPLETE CLINICAL HISTORY: baseline, comparision xray to right ft,LT FOOT PAIN, M79.672. TECHNIQUE: 2D digital imaging was performed. Three views. COMPARISON: CR XR FOOT RT COMPLETE from 10/09/2024 FINDINGS: BONES: No acute fracture is present. No bony destructive lesion is seen. Small heel spurs. JOINTS: No dislocation present. Mild degenerative changes in the 1st MTP joint. No significant hallu x valgus. Hammertoe deformities of the 3rd through 5th toes. SOFT TISSUE: Normal calcification in the proximal Achilles tendon. IMPRESSION: Unremarkable hammertoe deformities. Small heel spurs. Calcification in the proximal Achilles tendon . DATA REPOSITORY: RADIATION DOSE DELIVERED:
--- NOTE | 2024-10-09 07:45 | DI.RAD_ITS ---
Exam(s) XR FOOT RT COMPLETE EXAM: XR FOOT RT COMPLETE CLINICAL HISTORY: R 3rd toe, misalignment,RT FOOT PAIN,M79.671. TECHNIQUE: 2D digital imaging was performed. Three views. COMPARISON: No exams were available for comparison FINDINGS: BONES: No acute fracture is present. No bony destructive lesion is seen. JOINTS: No dislocation present. Mild degenerative changes at the 1st MTP joint. Degenerative change s of the interphalangeal joints of the toes and hammertoe deformities greatest of the 3rd toe. Some valgus deviation of the 3rd toe. SOFT TISSUE: Normal. IMPRESSION: Mild 1st MTP joint degenerative changes. Degenerative changes of the interphalangeal joints of the toes and hammertoe deformities. DATA REPOSITORY: RADIATION DOSE DELIVERED:
== END 2024-10-09 02:23 ==
PROVIDERS: PCP Nurse Practitioner Family; Visit Provider Podiatrist
DX: M79.672 Pain in left foot (principal); M79.671 Pain in right foot
CPT/HCPCS: 73630

== ENCOUNTER → 2024-11-07 14:24 | Outpatient (BNVA) | payer MEDICARE, SELFPAY | PROVIDERS: PCP Nurse Practitioner Family; Referring Provider Nurse Practitioner Family; Visit Provider Podiatrist | DX: M20.41 Other hammer toe(s) (acquired), right foot (principal); B35.1 Tinea unguium; S93.524A Sprain of metatarsophalangeal joint of right lesser toe(s), initial encounter; X58.XXXA Exposure to other specified factors, initial encounter | CPT/HCPCS: 99213 ==

== ENCOUNTER 2024-11-13 10:54 | Outpatient (REF) | payer MEDICARE, SELFPAY ==
[2024-11-13 16:08] LABS: ALT 20 U/L (14-59); AST 18 U/L (15-37); Albumin 3.9 g/dL (3.4-5.0); Alkaline Phosphatase 91 U/L (46-116); Anion Gap 7.1 mmol/L (3-11); BUN 11 mg/dL (7-18); Bilirubin, Total 0.5 mg/dL (0.2-1.0); CO2 28.9 mmol/L (21.0-32.0); CREATININE 0.8 mg/dL (0.55-1.02); Chloride 104 mmol/L (98-107); Estimated GFR 79.71 (mL/min/1.73m2); Glucose 94 mg/dL (74-106); Potassium 4.1 mmol/L (3.5-5.1); Sodium 140 mmol/L (136-145); TSH (W/Ref FT4) 1.05 uIU/mL (0.36-3.74); Total Protein 7.1 g/dL (6.4-8.2)
[2024-11-14 01:44] LABS: Hemoglobin A1C 5.6 % (<5.7)
[2024-11-14 18:59] LABS: Calculated LDL 85 mg/dL (<100); Cholesterol 166 mg/dL (<200); HDL Cholesterol 67 mg/dL (>or=50); Triglyceride 74 mg/dL (<150); Vitamin B12 300 pg/mL (193-986)
== END 2024-11-13 10:55 | disposition home or self-care (01) ==
LOC: NCHCN 10:54
PROVIDERS: PCP Nurse Practitioner Family; Visit Provider Nurse Practitioner Family
DX: E78.5 Hyperlipidemia, unspecified (principal); E03.9 Hypothyroidism, unspecified; E66.9 Obesity, unspecified; K21.9 Gastro-esophageal reflux disease without esophagitis
CPT/HCPCS: 80053; 80061; 82607; 83036; 83735; 84443

== ENCOUNTER 2024-11-21 01:08 | Outpatient (CLI) | payer MEDICARE, SELFPAY ==
--- NOTE | 2024-11-21 | DI.DEXA_ITS ---
Exam(s) XR DEXA BONE DENSITY W/WO NIKKI EXAM: XR DEXA BONE DENSITY W/WO NIKKI CLINICAL HISTORY: Asymptomatic menopausal state, Z78.0, screening for osteoporosis TECHNIQUE: COMPARISON: CR XR DEXA BONE DENSITY W/WO NIKKI from 11/14/2021 FINDINGS: Lateral Spine Image: Unremarkable. No compression deformities identified. Left hip: Total T-Score: -0.6. This compares to -0.1 on the prior examination. Total Z-Score: 0.9 T- and Z-scores: Within normal limits. Lumbar Spine: Total T-Score: 0.8. This compares to 0.6 on the prior examination. Total Z-Score: 2.8 T- and Z-scores: Within normal limits. IMPRESSION: No evidence of osteoporosis.
--- NOTE | 2024-11-21 | DI.RAD_ITS ---
Exam(s) XR CHEST 2V PA LATERAL EXAM: XR CHEST 2V PA LATERAL CLINICAL HISTORY: Chronic cough, R05.3 TECHNIQUE: 2D digital imaging was performed of the chest. Two images were obtained. PA and lateral views were obtained. COMPARISON: No exams were available for comparison FINDINGS: MEDIASTINUM: Normal. HEART: Normal. PULMONARY VASCULATURE: Normal. LUNGS: There is mild bronchial wall thickening in the perihilar region. No focal consolidating infil trates are seen. PLEURAL SPACE: No pleural effusion or pneumothorax. BONE:Within normal limits for the patient's age. OTHER FINDINGS:Normal. IMPRESSION: 1. Bronchial wall thickening which can be seen with bronchitis. 2. No focal consolidating infiltrates. DATA REPOSITORY: RADIATION DOSE DELIVERED:
== END 2024-11-21 01:28 ==
LOC: DI 01:08
PROVIDERS: PCP Nurse Practitioner Family; Visit Provider Nurse Practitioner Family
DX: Z78.0 Asymptomatic menopausal state (principal); R05.3 Chronic cough; J40 Bronchitis, not specified as acute or chronic; Z13.820 Encounter for screening for osteoporosis
CPT/HCPCS: 77080; 71046

== ENCOUNTER 2024-11-27 00:32 | Outpatient (CLI) | payer MEDICARE, SELFPAY ==
[2024-11-27] MEDS: Inhaler, Assist Device 1 EACH MC (16:14)
[2024-11-27] MEDS: Levalbuterol HFA 15 GM INH 4 PUFF IH (16:15)
--- NOTE | 2024-12-24 09:08 | W.PFT ---
Date of service: 11/27/24 Time of Service: 15:00 Pulmonary Function Test Result Indications: Chronic cough Interpretation Spirometry: No airflow limitation. No bronchodilator response. Lung Volumes: Normal lung volumes Diffusion Capacity: Normal diffusion Airway Pressure: Normal airways resistance. Impression Normal pulmonary function testing Clinical Correlation therefore is recommended.
== END 2024-11-27 00:33 | disposition home or self-care (01) ==
LOC: RT 00:32
PROVIDERS: PCP Nurse Practitioner Family; Visit Provider Student in an Organized Health Care Education/Training Program
DX: R05.3 Chronic cough (principal)
CPT/HCPCS: 94060; 94726; 94729

== ENCOUNTER 2025-01-09 01:49 | Outpatient (CLI) | payer MEDICARE, SELFPAY ==
--- NOTE | 2025-01-09 | DI.MAMMO_ITS ---
Exam(s) MAMMO SCREENING EXAM: MAMMO SCREENING CLINICAL HISTORY: SCREENING, Z12.31. TECHNIQUE: Bilateral full field digital CC and MLO mammographic images were obtained with 3D tomosynthesis and utilizing computer aided detection (CAD). COMPARISON: Prior mammograms were reviewed. FINDINGS: There has been no significant change in the appearance and distribution of the fibroglandular tissue which is again noted be predominately fatty.. There are no CAD designations. There are no new spiculated masses nor malignant appearing microcalcification groups. There is no significant architectural distortion nor skin thickening-retraction. IMPRESSION: No radiographic evidence of malignancy. BI-RADS Category 1 - Negative Breast Density - Category A - The breast are almost entirely fatty. Breast density Category C or D implies that the patient has dense breast tissue. Dense breast tissue can make it harder to find cancer on a mammogram. Dense breast tissue is also associated with an increased risk of breast cancer. This information about the result of the mammogram report was provided to the patient to raise their awareness. Use this report when you speak with the patient about their risks for breast cancer, which includes their family history. At that time, you may recommend additional screening tests (Ultrasound or MRI) as these tests may add significant information. A negative radiographic report should not delay biopsy if a dominant or clinically suspicious mass is present. Up to ten percent of cancers are not identified on mammography. A negative report may reinforce clinical impression. Adenosis and dense breasts may obscure an underlying neoplasm. False positive reports average 6 to 10%. Patient will receive a letter notifying them of these results.
== END 2025-01-09 02:09 ==
PROVIDERS: PCP Nurse Practitioner Family; Visit Provider Nurse Practitioner Family
DX: Z12.31 Encounter for screening mammogram for malignant neoplasm of breast (principal); R92.313 Mammographic fatty tissue density, bilateral breasts
CPT/HCPCS: 77063; 77067